=== PATIENT | male | born 1940 | race Caucasian/White ===

== ENCOUNTER 2017-09-07 09:49 | Inpatient (IN) | payer MEDICARE, BC ==
[2017-09-07] MEDS ORDERED: NS 0.9% 1000 ML* 1,000 ML IV ONE (10:16)
[2017-09-07 10:37] LABS: ABS Basophils 0 10^3/ul (0-0.2); ABS Eosinophils 0 10^3/ul (0-0.6); ABS Lymphocytes 1.4 10^3/ul (1.0-4.8); ABS Monocytes 0.4 10^3/ul (0-0.8); ABS Neutrophils 2.5 10^3/ul (1.5-7.7); ABS Nucleated RBC 0 10^3/ul; Eosinophil % 1.1 % (0-6); Hematocrit 42 % (42-52); Lymphocyte % 32.3 % (25-47); Mean Corpuscular HGB Conc 35 g/dl (31-36); Mean Corpuscular Hemoglobin 33 pg (27-31); Mean Corpuscular Volume 95 fL (80-94); Mean Platelet Volume 8 um3 (7.4-10.4); Nucleated Red Blood Cells % 0; Platelet Count 176 10^3/ul (150-450); Red Blood Count 4.48 10^6/ul (4.0-5.4); Red Cell Distribution Width 12 % (10.5-15); White Blood Count 4.5 10^3/ul (3.5-10.8)
[2017-09-07 10:47] LABS: INR 0.98 (0.77-1.02)
[2017-09-07 11:10] LABS: EGFR Non-African American 63.2 (>60)
--- NOTE | 2017-09-07 11:16 | RAD ---
indication: Increased lethargy and dementia COMPARISON: CT of the brain October 05, [address] scan of the brain and c-spine was performed without intravenous contrast enhancement. Contiguous axial sections were obtained from the lung apices through the vertex. BRAIN: There are symmetric involutional changes similar in appearance to the previous CT of the brain. There is mild to moderate periventricular and subcortical white matter hypoattenuation most consistent with chronic microvascular disease. Involving the midline portion of the left precentral gyrus (image 24) as well as gyri of the posterior right parietal lobe, there are areas of encephalomalacia that were not seen on the previous CT of the brain. Elsewhere the jackson-white matter differentiation is adequately maintained. There is no mass, mass effect or midline shift. There is coarse calcification of the petrous carotid arteries and bilateral vertebral arteries. There is no intracranial hemorrhage. No significant bony abnormality is present. The mastoid air cells are appropriately aerated. The visualized paranasal sinuses are clear. C-SPINE: On the sagittal view images there is reversal of the normal cervical lordosis. The vertebral bodies and facet joints are appropriately aligned. The atlantodental interval is not widened. There is no acute fracture or dislocation of the cervical spine. Degenerative changes include multilevel loss of intervertebral disc height and marginal osteophyte formation. There is coarse atherosclerotic calcification of the bilateral carotid bulbs, worse on the right than the left. There is no hyperdense material in the cervical canal to indicate hemorrhage. The visualized musculature and soft tissues are normal. There is no gross lymphadenopathy visualized. The visualized portion of the lung apices are clear. IMPRESSION: 1. Chronic findings similar to the October 05, 2014 CT of the brain include involutional changes and evidence of microvascular disease. There are new areas of chronic appearing encephalomalacia involving the right frontal and left parietal lobes that were not seen on the previous CT of the brain. If the patient is exhibiting acute focal neurologic deficits, MRI of the brain will provide superior characterization of acute infarction. 2. Nonspecific reversal of the normal cervical lordosis and multilevel degenerative changes of the cervical spine as described above. No acute fracture or dislocation is identified.
--- NOTE | 2017-09-07 11:16 | RAD ---
INDICATION: Altered mental status COMPARISON: Chest x-ray August 28, 2009 TECHNIQUE: Single AP portable view of the chest was obtained. FINDINGS: Image quality is compromised due to the relative inferiority of a portable chest x-ray. The heart and mediastinum exhibit normal size and contour. The lungs are grossly clear. There is no evidence of a large pleural effusion. Visualized bones are normal for the patient's age. IMPRESSION: No radiographic evidence for acute cardiopulmonary abnormality on this portable chest x-ray.
--- NOTE | 2017-09-07 13:16 | ED ---
Jaciel Mccray Elizabeth, scribed for Giovani Thompson MD on 09/07/17 at 1118 . Altered Mental Status - HPI Summary HPI Summary: The patient is a 77 year old male presenting to the emergency department with altered mental status. The patient denies any difficulty moving or pain. Per triage note, patient has been increasingly lethargic at home and has a history of dementia. The patient lives at home with his 80 year old . The patients says his dementia has been worsening and recently he has become less active and has been falling often. This morning he fell and his hurt herself trying to help him get up. His does not think she can take care of him anymore. - History Of Current Complaint Chief Complaint: EDAltMentalStatus Stated Complaint: GENERAL ILLNESS Time Seen by Provider: 09/07/17 10:11 Hx Obtained From: Patient Hx From Patient Unobtainable Due To: Altered Mental Status Onset/Duration: Unknown Character: Lethargy Aggravating Factor(s): Unknown Alleviating Factor(s): Unknown - Allergies/Home Medications Allergies/Adverse Reactions: Allergies Allergy/AdvReac Type Severity Reaction Status Date / Time No Known Allergies Allergy Verified 10/05/14 17:29 Home Medications: Home Medications Aspirin EC Low Dose* [Ecotrin EC Low Dose 81 MG*] 81 mg PO DAILY 09/07/17 [ History Confirmed 09/07/17] Donepezil TAB* [Aricept 5 MG TAB*] 10 mg PO BEDTIME 09/07/17 [History Confirmed 09/07/17] FLUoxetine CAP* [PROzac CAP*] 40 mg PO DAILY PRN 09/07/17 [History Confirmed ] Irbesartan/Hctz 300-12.5 1 tab PO DAILY 09/07/17 [History Confirmed 09/07/17] Memantine TAB* [Namenda TAB*] 10 mg PO BID 09/07/17 [History Confirmed 09/07/17] Multivitamins/Minerals TAB* [Theragran/minerals TAB*] 1 tab PO DAILY 09/07/17 [ History Confirmed 09/07/17] Venlafaxine EXT RELEASE CAP* [Effexor Xr CAP*] 75 mg PO DAILY 09/07/17 [History Confirmed 09/07/17] traZODone TAB* [Desyrel TAB*] 50 - 150 mg PO BEDTIME PRN 09/07/17 [History Confirmed 09/07/17] PMH/Surg Hx/FS Hx/Imm Hx Endocrine/Hematology History: Reports: Hx Diabetes Denies: Hx Thyroid Disease Cardiovascular History: Reports: Hx Hypertension Respiratory History: Denies: Hx Asthma, Hx Chronic Obstructive Pulmonary Disease (COPD) GI History: Denies: Hx Ulcer Neurological History: Reports: Hx Dementia - Surgical History Surgery Procedure, Year, and Place: RIGHT shoulder rotator cuff repair more than 10 years ago Infectious Disease History: No Infectious Disease History: Denies: Hx Hepatitis, Hx Human Immunodeficiency Virus (HIV), Traveled Outside the [place] in Last 30 Days - Social History Alcohol Use: None Substance Use Type: Reports: None Smoking Status (MU): Former Smoker Review of Systems Negative: Epistaxis Negative: Decreased ROM All Other Systems Reviewed And Are Negative: Yes Physical Exam - Summary Physical Exam Summary: General: well-appearing, no pain distress Skin: warm, color reflects adequate perfusion, dry Head: normal Eyes: EOMI, DYLLAN ENT: dry mucus membranes Neck: supple, nontender Respiratory: CTA, breath sounds present Cardiovascular: RRR Abdomen: soft, nontender Bowel: present Musculoskeletal: normal, strength/ROM intact, moves all limbs Neurological: confused, sensory/motor intact, not oriented to location Psychological: affect/mood appropriate, confused Triage Information Reviewed: Yes Vital Signs On Initial Exam: Initial Vitals Temp Pulse Resp BP Pulse Ox 97.0 F 53 15 130/58 97 09/07/17 09:50 09/07/17 09:50 09/07/17 09:50 09/07/17 09:50 09/07/17 09:50 Vital Signs Reviewed: Yes Diagnostics - Vital Signs Vital Signs Temp Pulse Resp BP Pulse Ox 09/07/17 10:31 99 09/07/17 10:30 55 112/69 98 09/07/17 10:06 69 12 93 09/07/17 10:05 131/62 09/07/17 09:50 97.0 F 53 15 130/58 97 - Laboratory Lab Results: Lab Results 09/07/17 09/07/17 09/07/17 Range/Units 10:27 10:27 10:27 WBC 4.5 (3.5-10.8) 10^3/ul RBC 4.48 (4.0-5.4) 10^6/ul Hgb 15.0 (14.0-18.0) g/dl Hct 42 (42-52) % MCV 95 H (80-94) fL MCH 33 H (27-31) pg MCHC 35 (31-36) g/dl RDW 12 (10.5-15) % Plt Count 176 (150-450) 10^3/ul MPV 8 (7.4-10.4) um3 Neut % (Auto) 56.0 (38-83) % Lymph % (Auto) 32.3 (25-47) % [place] % (Auto) 9.9 H (0-7) % Eos % (Auto) 1.1 (0-6) % Baso % (Auto) 0.7 (0-2) % Absolute Neuts (auto) 2.5 (1.5-7.7) 10^3/ul Absolute Lymphs (auto) 1.4 (1.0-4.8) 10^3/ul Absolute Monos (auto) 0.4 (0-0.8) 10^3/ul Absolute Eos (auto) 0 (0-0.6) 10^3/ul Absolute Basos (auto) 0 (0-0.2) 10^3/ul Absolute Nucleated RBC 0 10^3/ul Nucleated RBC % 0 INR (Anticoag Therapy) (0.77-1.02) APTT (26.0-36.3) seconds Sodium 130 L (133-145) mmol/L Potassium 4.0 (3.5-5.0) mmol/L Chloride 95 L (101-111) mmol/L Carbon Dioxide 28 (22-32) mmol/L Anion Gap 7 (2-11) mmol/L BUN 18 (6-24) mg/dL Creatinine 1.12 (0.67-1.17) mg/dL Est GFR ( Amer) 81.3 (>60) Est GFR (Non-Af Amer) 63.2 (>60) BUN/Creatinine Ratio 16.1 (8-20) Glucose 263 H (70-100) mg/dL Lactic Acid (0.5-2.0) mmol/L Calcium 9.7 (8.6-10.3) mg/dL Magnesium 2.1 (1.9-2.7) mg/dL Total Bilirubin 1.60 H (0.2-1.0) mg/dL AST 15 (13-39) U/L ALT 13 (7-52) U/L Alkaline Phosphatase 84 (34-104) U/L Ammonia 28 (16-53) mol/L Total Creatine Kinase 126 (10-223) U/L CK-MB (CK-2) 5.4 (0.6-6.3) ng/mL Troponin I 0.01 (<0.04) ng/mL C-Reactive Protein < 1.00 (< 5.00) mg/L B-Natriuretic Peptide 20 ( - 100) pg/mL Total Protein 7.3 (6.4-8.9) g/dL Albumin 4.1 (3.2-5.2) g/dL Globulin 3.2 (2-4) g/dL Albumin/Globulin Ratio 1.3 (1-3) Lipase 23 (11.0-82.0) U/L TSH 1.05 (0.34-5.60) mcIU/mL Acetaminophen < 15 mcg/mL Serum Alcohol < 10 (<10) mg/dL 09/07/17 09/07/17 Range/Units 10:27 10:27 WBC (3.5-10.8) 10^3/ul RBC (4.0-5.4) 10^6/ul Hgb (14.0-18.0) g/dl Hct (42-52) % MCV (80-94) fL MCH (27-31) pg MCHC (31-36) g/dl RDW (10.5-15) % Plt Count (150-450) 10^3/ul MPV (7.4-10.4) um3 Neut % (Auto) (38-83) % Lymph % (Auto) (25-47) % [place] % (Auto) (0-7) % Eos % (Auto) (0-6) % Baso % (Auto) (0-2) % Absolute Neuts (auto) (1.5-7.7) 10^3/ul Absolute Lymphs (auto) (1.0-4.8) 10^3/ul Absolute Monos (auto) (0-0.8) 10^3/ul Absolute Eos (auto) (0-0.6) 10^3/ul Absolute Basos (auto) (0-0.2) 10^3/ul Absolute Nucleated RBC 10^3/ul Nucleated RBC % INR (Anticoag Therapy) 0.98 (0.77-1.02) APTT 27.3 (26.0-36.3) seconds Sodium (133-145) mmol/L Potassium (3.5-5.0) mmol/L Chloride (101-111) mmol/L Carbon Dioxide (22-32) mmol/L Anion Gap (2-11) mmol/L BUN (6-24) mg/dL Creatinine (0.67-1.17) mg/dL Est GFR ( Amer) (>60) Est GFR (Non-Af Amer) (>60) BUN/Creatinine Ratio (8-20) Glucose (70-100) mg/dL Lactic Acid 1.7 (0.5-2.0) mmol/L Calcium (8.6-10.3) mg/dL Magnesium (1.9-2.7) mg/dL Total Bilirubin (0.2-1.0) mg/dL AST (13-39) U/L ALT (7-52) U/L Alkaline Phosphatase (34-104) U/L Ammonia (16-53) mol/L Total Creatine Kinase (10-223) U/L CK-MB (CK-2) (0.6-6.3) ng/mL Troponin I (<0.04) ng/mL C-Reactive Protein (< 5.00) mg/L B-Natriuretic Peptide ( - 100) pg/mL Total Protein (6.4-8.9) g/dL Albumin (3.2-5.2) g/dL Globulin (2-4) g/dL Albumin/Globulin Ratio (1-3) Lipase (11.0-82.0) U/L TSH (0.34-5.60) mcIU/mL Acetaminophen mcg/mL Serum Alcohol (<10) mg/dL Result Diagrams: 09/07/17 10:27 09/07/17 10:27 Lab Statement: Any lab studies that have been ordered have been reviewed, and results considered in the medical decision making process. - Radiology CXR Xray Interpretation: No Acute Changes - IMPRESSION: No radiographic evidence for acute cardiopulmonary abnormality on this portable chest x-ray. Dr. Thompson has reviewed this report. Radiology Interpretation Completed By: Radiologist - CT CT Brain & Cervical Spine CT Interpretation: Positive (See Comments) - IMPRESSION: 1. Chronic findings similar to the October 05, 2014 CT of the brain include involutional changes and evidence of microvascular disease. There are new areas of chronic appearing encephalomalacia involving the right frontal and left parietal lobes that were not seen on the previous CT of the brain. If the patient is exhibiting acute focal neurologic deficits, MRI of the brain will provide superior characterization of acute infarction. 2. Nonspecific reversal of the normal cervical lordosis and multilevel degenerative changes of the cervical spine as described above. No acute fracture or dislocation is identified. Dr. Thompson has reviewed this report. CT Interpretation Completed By: Radiologist - EKG 10:30 Cardiac Rate: Bradycardia - 53 bpm EKG Rhythm: Sinus Bradycardia ST Segment: Normal Ectopy: None Altered Mental Statu Course/Dx - Course Course Of Treatment: ADMIT HOSPITALIST - Diagnoses Provider Diagnoses: Weakness, Confusion Discharge - Discharge Plan Condition: Stable Disposition: ADMITTED TO [facility] Referrals: Bryan Duff MD [Primary Care Provider] - The documentation as recorded by the Jaciel newton Elizabeth accurately reflects the service I personally performed and the decisions made by , Giovani Thompson MD.
[2017-09-07] MEDS ORDERED: Acetaminophen TAB* 325 MG PO PRN (14:06)
[2017-09-07] MEDS ORDERED: FLUoxetine CAP* 20 MG PO PRN (14:08)
[2017-09-07] MEDS ORDERED: traZODone TAB* 50 MG TAB PO PRN (14:08)
[2017-09-07 14:46] LABS: Urine Appearance Cloudy; Urine Blood Negative (Negative); Urine Color Yellow; Urine Ketones Negative (Negative); Urine Protein Negative (Negative); Urine Specific Gravity 1.015 (1.010-1.030); Urine Urobilinogen Negative (Negative)
[2017-09-07] MEDS ORDERED: Dextrose 50% Syringe 50 ML* 25 GM/50 ML SYRINGE IV PUSH PRN (15:03)
[2017-09-07] MEDS: Insulin LISPRO* 1 UNITS UNIT SUBCUT SCH (16:55)
[2017-09-07] MEDS: Sulfamethox/Trimethoprim DS 800/160* TAB PO SCH (20:23)
[2017-09-07] MEDS: Memantine TAB* 10 MG PO SCH (20:23)
[2017-09-07] MEDS ORDERED: Donepezil TAB* 5 MG PO SCH (21:00)
[2017-09-07] MEDS: Heparin VIAL(*) 5000 UNITS/ML VIAL (FIVE THOUSAND) SUBCUT SCH (22:01)
--- NOTE | 2017-09-08 01:47 | HP ---
CC: Dr. Duff * HISTORY AND PHYSICAL: DATE OF ADMISSION: 09/07/17 PRIMARY CARE PROVIDER: Bryan Duff MD. CHIEF COMPLAINT: Falls and difficulty being cared for at home. HISTORY OF PRESENT ILLNESS: Mr. Sarah is a 77-year-old male who has a history of dementia for the last 7 years, who recently has been having increased falls at home. The patient's has been having a harder and harder time caring for him. She notes on the evening prior to admission at approximately 10 p.m., the patient had indicated that he needed to go to the bathroom. She was getting out of bed to help him and before she was able to arrive to him, he was incontinent of a very large amount of urine. She states that he is normally incontinent, but not quite to this degree. This past , the patient's was trying to get the patient up off the couch and she felt like she " threw her back out." The patient has been having worsening memory issues and at this point she feels that she can no longer care for him safely at home. PAST MEDICAL HISTORY: 1. Dementia. 2. Depression. 3. Hypertension. 4. Glaucoma. PAST SURGICAL HISTORY: None per the patient's . ALLERGIES: No known drug allergies. MEDICATIONS: 1. Fluoxetine 40 mg p.o. daily p.r.n. anxiety. 2. Namenda 10 mg p.o. b.i.d. 3. Irbesartan/hydrochlorothiazide 300/12.5 mg one tablet p.o. daily. 4. Donepezil 10 mg p.o. q.h.s. 5. Trazodone 50 to 150 mg p.o. q.h.s. p.r.n. insomnia. 6. Effexor XR 75 mg p.o. daily. 7. Aspirin 81 mg p.o. daily. 8. Multivitamin one table p.o. daily. FAMILY HISTORY: The patient's believes both parents passed from coronary artery disease. SOCIAL HISTORY: The patient is a reported nonsmoker. He does not drink alcohol. 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 He is . He has 2 sons of his own. He is to Katherine Sarah. She has 5 children of her own. REVIEW OF SYSTEMS: Unobtainable from the patient. PHYSICAL EXAMINATION GENERAL: The patient is a well-developed, elderly male seen lying in the stretcher sleeping, easily awakens to voice, no acute distress. VITAL SIGNS: Blood pressure 128/66, pulse 52, respirations 16, temp 97.0, O2 sat 100% on room air. HEENT: Pupils are equal and round. Extraocular muscles are intact. Oropharynx is clear. Oral mucosa is moist. There is no submandibular, cervical or supraclavicular adenopathy. Thyroid is not enlarged. No thyroid nodules are noted. PULMONARY: Lungs are clear to auscultation bilaterally. CARDIAC: Normal S1, S2. Regular rate and rhythm. I do not appreciate any murmurs. ABDOMEN: Bowel sounds are present. Abdomen is soft, nondistended. He does complain of mild tenderness in the epigastrium. MUSCULOSKELETAL: There is no cyanosis or clubbing of the digits. There is full active range of motion of all 4 extremities. SKIN: Warm and dry. There are no rashes. NEUROLOGIC: Cranial nerves II through XII appear to be grossly intact. Sensation appears to be intact to light touch. Strength testing is not performed. PSYCHIATRIC: The patient is pleasantly confused. LABORATORY DATA: WBC 4.5, hemoglobin 15.0, hematocrit 42, platelets 176, INR 0.98. Sodium 130, potassium 4.0, chloride 95, CO2 28, BUN 18, creatinine 1.12, glucose 263, lactic acid 1.7, calcium 9.7, magnesium 2.1, bilirubin 1.6, AST is 15, ALT 13, alk phos 84, ammonia 28, CPK 126, CK-MB 5.4, troponin 0.01, CRP less than 1, BNP 20, albumin 4.1, lipase 23, TSH 1.05. Acetaminophen less than 15, serum alcohol less than 10. Urinalysis positive for nitrites, leukocyte esterase, wbc, but absent for bacteria. ASSESSMENT AND PLAN: Mr. Sarah is a 77-year-old male with history of progressive dementia, who has become more and more difficult to care for at home , who was brought to the emergency room for evaluation. 1. Urinary tract infection. It does appear that the patient likely has a urinary tract infection. The patient's indicates that he has had a steady decline over the last several months. While the urinary tract infection could be contributing more acutely, I do not think this is the total reason for the patient's decline. At this point, the patient's believes that she will need him placed for care. The patient will be started on Bactrim double- strength 1 tablet p.o. b.i.d. x7 days. 2. Hyperglycemia. The patient does not carry a history of diabetes. His sugar is elevated at 263 on random check. He does have 3+ glucose noted within his urine. Hemoglobin A1c will be added to the labs from the emergency room. He will be placed on a lispro sliding scale to determine what his sugars are doing on a daily basis. 3. Dementia. We will continue the Aricept and Namenda, though they likely are not providing any benefit at this point. We will discuss with the patient's tomorrow about discontinuing these. 4. Depression. We will continue the patient's home medication regimen. 5. Hypertension. The patient's blood pressure is under good control. He will be maintained on his usual doses of ARB and hydrochlorothiazide. 6. DVT prophylaxis: According to the Adult Thrombosis Prophylaxis Risk Factor Assessment Guide, the patient has a total risk factor score of 4, making him high risk. Heparin 5000 units subcutaneous q.8 hours will be utilized as DVT prophylaxis. 7. Code status is DNR. [id number]/[facility] #: [id number] FAXTON HOSPITALBerna
[2017-09-08] MEDS: Heparin VIAL(*) 5000 UNITS/ML VIAL (FIVE THOUSAND) SUBCUT SCH ×2 (06:02→12:50)
[2017-09-08] MEDS ORDERED: Losartan TAB* 25 MG PO SCH (09:00)
[2017-09-08] MEDS ORDERED: Multivitamins/Minerals TAB PO SCH (09:00)
[2017-09-08] MEDS ORDERED: Hydrochlorothiazide TAB* 25 MG PO SCH (09:00)
[2017-09-08] MEDS ORDERED: Venlafaxine EXT RELEASE CAP* 75 MG PO SCH (09:00)
[2017-09-08] MEDS ORDERED: Aspirin EC TAB* 81 MG TAB.EC PO SCH (09:00)
[2017-09-08] MEDS: Memantine TAB* 10 MG PO SCH (09:14)
[2017-09-08] MEDS: Sulfamethox/Trimethoprim DS 800/160* TAB PO SCH (09:16)
[2017-09-08] MEDS: Insulin LISPRO* 1 UNITS UNIT SUBCUT SCH ×2 (09:24→12:50)
--- NOTE | 2017-09-08 14:40 | PN ---
Subjective Date of Service: 09/08/17 Interval History: PT is feeling well. He denies pain or SOB. He has been offered a bed at [facility], [place]. Objective Active Medications: Acetaminophen (Tylenol Tab*) 650 mg PO Q4H PRN PRN Reason: PAIN Aspirin (Aspirin Ec Low Dose*) 81 mg PO DAILY [facility] Last Admin: 09/08/17 09:13 Dose: 81 mg Dextrose (D50w Syringe 50 Ml*) 12.5 gm IV PUSH .FOR FS < 60 - SS PRN PRN Reason: FS < 60 Donepezil HCl (Aricept Tab*) 10 mg PO BEDTIME [facility] Last Admin: 09/07/17 20:22 Dose: 10 mg Fluoxetine HCl (Prozac Cap*) 40 mg PO DAILY PRN PRN Reason: ANXIETY Heparin Sodium (Porcine) (Heparin Vial(*)) 5,000 units SUBCUT Q8HR [facility] Last Admin: 09/08/17 12:50 Dose: 5,000 units Hydrochlorothiazide (Hydrodiuril Tab*) 12.5 mg PO DAILY [facility] Last Admin: 09/08/17 09:21 Dose: 12.5 mg Insulin Human Lispro (Humalog*) 0 units SUBCUT AC [facility] PRN Reason: Protocol Last Admin: 09/08/17 12:50 Dose: 4 unit Losartan Potassium (Cozaar Tab*) 100 mg PO DAILY [facility] Last Admin: 09/08/17 09:20 Dose: 100 mg Memantine (Namenda Tab*) 10 mg PO BID [facility] Last Admin: 09/08/17 09:14 Dose: 10 mg Multivitamins/Minerals (Theragran/Minerals Tab*) 1 tab PO DAILY [facility] Last Admin: 09/08/17 09:22 Dose: 1 tab Trazodone HCl (Desyrel Tab*) 50 mg PO BEDTIME PRN PRN Reason: SLEEP Last Admin: 09/07/17 20:22 Dose: 50 mg Trimethoprim/Sulfamethoxazole (Bactrim Ds 800/160 Tab*) 1 tab PO BID [facility] Last Admin: 09/08/17 09:16 Dose: 1 tab Venlafaxine HCl (Effexor Xr Cap*) 75 mg PO DAILY [facility] Last Admin: 09/08/17 09:18 Dose: 75 mg Vital Signs - 8 hr 09/08/17 09/08/17 07:46 08:00 Temperature 97.5 F Pulse Rate 58 Respiratory 16 16 Rate Blood Pressure 112/61 (mmHg) O2 Sat by Pulse 95 Oximetry Oxygen Devices in Use Now: None Appearance: Elderly male sitting up in bed, NAD Eyes: No Scleral Icterus Ears/Nose/Mouth/Throat: Mucous Membranes Moist Respiratory: Symmetrical Chest Expansion and Respiratory Effort, Clear to Auscultation Cardiovascular: NL Sounds; No Murmurs; No JVD, RRR, No Edema Abdominal: NL Sounds; No Tenderness; No Distention Extremities: No Clubbing, Cyanosis Skin: No Rash or Ulcers, No Nodules or Sclerosis Neurological: - - pleasantly confused Result Diagrams: 09/07/17 10:27 09/07/17 10:27 Additional Lab and Data: Lab Results 09/07/17 09/07/17 09/07/17 Range/Units 10:27 10:27 10:27 WBC 4.5 (3.5-10.8) 10^3/ul RBC 4.48 (4.0-5.4) 10^6/ul Hgb 15.0 (14.0-18.0) g/dl Hct 42 (42-52) % MCV 95 H (80-94) fL MCH 33 H (27-31) pg MCHC 35 (31-36) g/dl RDW 12 (10.5-15) % Plt Count 176 (150-450) 10^3/ul MPV 8 (7.4-10.4) um3 Neut % (Auto) 56.0 (38-83) % Lymph % (Auto) 32.3 (25-47) % [place] % (Auto) 9.9 H (0-7) % Eos % (Auto) 1.1 (0-6) % Baso % (Auto) 0.7 (0-2) % Absolute Neuts (auto) 2.5 (1.5-7.7) 10^3/ul Absolute Lymphs (auto) 1.4 (1.0-4.8) 10^3/ul Absolute Monos (auto) 0.4 (0-0.8) 10^3/ul Absolute Eos (auto) 0 (0-0.6) 10^3/ul Absolute Basos (auto) 0 (0-0.2) 10^3/ul Absolute Nucleated RBC 0 10^3/ul Nucleated RBC % 0 INR (Anticoag Therapy) (0.77-1.02) APTT (26.0-36.3) seconds Sodium 130 L (133-145) mmol/L Potassium 4.0 (3.5-5.0) mmol/L Chloride 95 L (101-111) mmol/L Carbon Dioxide 28 (22-32) mmol/L Anion Gap 7 (2-11) mmol/L BUN 18 (6-24) mg/dL Creatinine 1.12 (0.67-1.17) mg/dL Est GFR ( Amer) 81.3 (>60) Est GFR (Non-Af Amer) 63.2 (>60) BUN/Creatinine Ratio 16.1 (8-20) Glucose 263 H (70-100) mg/dL Lactic Acid (0.5-2.0) mmol/L Calcium 9.7 (8.6-10.3) mg/dL Magnesium 2.1 (1.9-2.7) mg/dL Total Bilirubin 1.60 H (0.2-1.0) mg/dL AST 15 (13-39) U/L ALT 13 (7-52) U/L Alkaline Phosphatase 84 (34-104) U/L Ammonia 28 (16-53) mol/L Total Creatine Kinase 126 (10-223) U/L CK-MB (CK-2) 5.4 (0.6-6.3) ng/mL Troponin I 0.01 (<0.04) ng/mL C-Reactive Protein < 1.00 (< 5.00) mg/L B-Natriuretic Peptide 20 ( - 100) pg/mL Total Protein 7.3 (6.4-8.9) g/dL Albumin 4.1 (3.2-5.2) g/dL Globulin 3.2 (2-4) g/dL Albumin/Globulin Ratio 1.3 (1-3) Lipase 23 (11.0-82.0) U/L TSH 1.05 (0.34-5.60) mcIU/mL Acetaminophen < 15 mcg/mL Serum Alcohol < 10 (<10) mg/dL 09/07/17 09/07/17 Range/Units 10:27 10:27 WBC (3.5-10.8) 10^3/ul RBC (4.0-5.4) 10^6/ul Hgb (14.0-18.0) g/dl Hct (42-52) % MCV (80-94) fL MCH (27-31) pg MCHC (31-36) g/dl RDW (10.5-15) % Plt Count (150-450) 10^3/ul MPV (7.4-10.4) um3 Neut % (Auto) (38-83) % Lymph % (Auto) (25-47) % [place] % (Auto) (0-7) % Eos % (Auto) (0-6) % Baso % (Auto) (0-2) % Absolute Neuts (auto) (1.5-7.7) 10^3/ul Absolute Lymphs (auto) (1.0-4.8) 10^3/ul Absolute Monos (auto) (0-0.8) 10^3/ul Absolute Eos (auto) (0-0.6) 10^3/ul Absolute Basos (auto) (0-0.2) 10^3/ul Absolute Nucleated RBC 10^3/ul Nucleated RBC % INR (Anticoag Therapy) 0.98 (0.77-1.02) APTT 27.3 (26.0-36.3) seconds Sodium (133-145) mmol/L Potassium (3.5-5.0) mmol/L Chloride (101-111) mmol/L Carbon Dioxide (22-32) mmol/L Anion Gap (2-11) mmol/L BUN (6-24) mg/dL Creatinine (0.67-1.17) mg/dL Est GFR ( Amer) (>60) Est GFR (Non-Af Amer) (>60) BUN/Creatinine Ratio (8-20) Glucose (70-100) mg/dL Lactic Acid 1.7 (0.5-2.0) mmol/L Calcium (8.6-10.3) mg/dL Magnesium (1.9-2.7) mg/dL Total Bilirubin (0.2-1.0) mg/dL AST (13-39) U/L ALT (7-52) U/L Alkaline Phosphatase (34-104) U/L Ammonia (16-53) mol/L Total Creatine Kinase (10-223) U/L CK-MB (CK-2) (0.6-6.3) ng/mL Troponin I (<0.04) ng/mL C-Reactive Protein (< 5.00) mg/L B-Natriuretic Peptide ( - 100) pg/mL Total Protein (6.4-8.9) g/dL Albumin (3.2-5.2) g/dL Globulin (2-4) g/dL Albumin/Globulin Ratio (1-3) Lipase (11.0-82.0) U/L TSH (0.34-5.60) mcIU/mL Acetaminophen mcg/mL Serum Alcohol (<10) mg/dL Assess/Plan/Problems-Billing 77 yo M with advanced dementia admitted under prison care for increased falls. - Patient Problems (1) Dementia Current Visit: Yes Status: Acute Code(s): F03.90 - UNSPECIFIED DEMENTIA WITHOUT BEHAVIORAL DISTURBANCE SNOMED Code(s): 64473170 Comment: Stop aricept and namenda as they likely are not providing any benefit. Continue supportive care. (2) Falls Current Visit: Yes Status: Acute Comment: Pt will be going to [facility] for hopefully a safer environment. (3) Type II diabetes mellitus Current Visit: Yes Status: Acute Comment: Likely diagnosed previously but pt had refused finger sticks so treatment was stopped. Start metformin 500 mg daily and not aim for perfect control. (4) UTI (urinary tract infection) Current Visit: Yes Status: Acute Comment: Pt likely has UTI. Continue bactrim x 6 more days. (5) DNR (do not resuscitate) Current Visit: Yes Status: Acute
--- NOTE | 2017-09-08 15:04 | DS ---
CC: Dr. Duff; [facility] * DATE OF ADMISSION: 09/07/2017. DATE OF DISCHARGE: 09/08/2017. PRIMARY CARE PHYSICIAN: Dr. Duff. PRINCIPAL DIAGNOSES: 1. Advanced dementia. 2. Frequent falls. 3. Urinary tract infection - culture pending. 4. Type 2 diabetes. SECONDARY DIAGNOSES: 1. Depression. 2. Hypertension. DISCHARGE MEDICATIONS: 1. Prozac 40 mg p.o. daily prn anxiety. 2. Irbesartan/Hydrochlorothiazide 300/12.5 one tab p.o. daily. 3. Trazodone 50 mg p.o. at bedtime prn insomnia. 4. Venlafaxine XR 75 mg p.o. daily. 5. Aspirin 81 mg p.o. daily. 6. Multivitamin one tab p.o. daily. 7. Metformin 500 mg p.o. daily. 8. Bactrim DS one tab p.o. b.i.d. HOSPITAL COURSE: Mr. Sarah is a 77-year-old male who has been cared for at home by his for his history of advanced dementia. She notes that he has had increasing falls recently. She is no longer able to pick him up off the floor and has been having to call family members to help her. At this point, she feels that she is unable to continue to care for him at home. The patient was brought to the emergency room for evaluation. He was found to have a urinary tract infection; however, he was not septic secondary to this. The urine culture is pending at this time. He was started on Bactrim. The culture will need to be followed up to ensure that he is on appropriate therapy for the bacteria that grows. Additionally, the patient was found to be a type 2 diabetic. Initially the patient's denied this history; however, in speaking with the patient's daughter, she indicates that he likely has been diagnosed as a type 2 diabetes, however he had refused fingersticks in the past. At this point, we will start Metformin 500 mg daily to try to achieve somewhat better control with the understanding that he does not need tight blood sugar control at this point. The patient has been given a bed offer at [facility] and will be discharged there today. FOLLOW-UP CONCERNS: The patient is being discharged to [facility] today, 09/08/2017. ACTIVITY LEVEL: As tolerated. DIET: Diabetic. CONDITION ON DISCHARGE: Stable. Thirty-five minutes were spent discharging this patient. [id number]/[facility] #: [id number] [facility] CENTERBerna
[2017-09-08 16:18] VITALS: BP 102/56
== END 2017-09-08 16:15 | DRG 884 ==
LOC: ED 09:49 → MED 14:06
PROVIDERS: ADMIT Hospitalist; ATTEND Hospitalist
DX: F03.90 Unspecified dementia, unspecified severity, without behavioral disturbance, psychotic disturbance, mood disturbance, and anxiety (principal); N39.0 Urinary tract infection, site not specified; E11.9 Type 2 diabetes mellitus without complications; F32.9 Major depressive disorder, single episode, unspecified; I10 Essential (primary) hypertension; H40.9 Unspecified glaucoma; Z74.2 Need for assistance at home and no other household member able to render care; Z66 Do not resuscitate; Z79.82 Long term (current) use of aspirin; Z91.81 History of falling; Z79.899 Other long term (current) drug therapy; Z82.49 Family history of ischemic heart disease and other diseases of the circulatory system; R41.82 Altered mental status, unspecified; Z87.891 Personal history of nicotine dependence; R53.1 Weakness; R41.0 Disorientation, unspecified; R53.83 Other fatigue; R00.1 Bradycardia, unspecified
CPT/HCPCS: 36415; 70450; 71045; 72125; 80053; 80307; 80320; 80329; 81003; 81015; 82140; 82550; 82553; 83036; 83605; 83690; 83735; 83880; 84443; 84484; 85025; 85610; 85730; 86140; 87086; 93005; 99284; A9270-GY; G0480; J1644

== ENCOUNTER 2017-09-23 16:12 | Inpatient (IN) | payer MEDICARE, BC ==
[2017-09-23] MEDS ORDERED: Lidocaine 2% JELLY* 6 ML JELLY TOPICAL ONE (16:26)
[2017-09-23] MEDS ORDERED: NS 0.9% 1000 ML* 1,000 ML IV ONE ×3 (16:44→18:25)
[2017-09-23] MEDS ORDERED: LORazepam INJ* 2 MG/ML 1 ML VIAL IV PUSH ONE (16:55)
[2017-09-23 17:12] LABS: Urine Appearance Cloudy; Urine Blood 3+ (Negative); Urine Color Yellow; Urine Ketones Negative (Negative); Urine Protein 1+(30 mg/dL) (Negative); Urine Specific Gravity 1.018 (1.010-1.030); Urine Urobilinogen Negative (Negative)
[2017-09-23 17:22] LABS: Hematocrit 46 % (42-52); Hemoglobin 15.6 g/dl (14.0-18.0); Mean Corpuscular HGB Conc 34 g/dl (31-36); Mean Corpuscular Hemoglobin 33 pg (27-31); Mean Corpuscular Volume 97 fL (80-94); Platelet Count 274 10^3/ul (150-450); Red Blood Count 4.77 10^6/ul (4.0-5.4); Red Cell Distribution Width 12 % (10.5-15); White Blood Count 20.7 10^3/ul (3.5-10.8)
[2017-09-23 17:28] LABS: EGFR Non-African American 17.4 (>60)
[2017-09-23] MEDS ORDERED: cefTRIAXone(*) 1 GM in NS 0.9% 50 ML* 50 ML IVPB ONE (17:39)
[2017-09-23] MEDS ORDERED: cefTRIAXone VIAL(*) 1,000 MG VIAL ONE (17:48)
[2017-09-23] MEDS ORDERED: cefTRIAXone 1000 MG SYRINGE IVPB ONCE (in NaCl) IVPB ONE ×2 (18:00)
[2017-09-23 18:11] LABS: ABS Basophils 0.1 10^3/ul (0-0.2); ABS Eosinophils 0 10^3/ul (0-0.6); ABS Lymphocytes 1.8 10^3/ul (1.0-4.8); ABS Monocytes 1.7 10^3/ul (0-0.8); ABS Neutrophils 17.1 10^3/ul (1.5-7.7); ABS Nucleated RBC 0 10^3/ul; Eosinophil % 0 % (0-6); Lymphocyte % 8.6 % (25-47); Nucleated Red Blood Cells % 0
--- NOTE | 2017-09-23 18:37 | RAD ---
INDICATION: Change of mental status COMPARISON: CT brain September 07, 2017 TECHNIQUE: Noncontrast axial source images were acquired from the skull base to the vertex. Examination is limited due to motion artifact. Image sequences were repeated. FINDINGS: Ventricles/sulci: There is advanced cortical atrophy.. Brain parenchyma: There is extensive periventricular and subcortical white matter change compatible with chronic ischemia. Intracranial hemorrhage:None. Extra-axial spaces: There are no abnormal extra axial fluid collections or evidence of extra-axial mass. Calvarium: There is no calvarial fracture or other calvarial abnormality. Scalp: There is no evidence of scalp or extracalvarial soft tissue abnormality. Paranasal sinuses/mastoid: The paranasal sinuses and mastoid air cells are clear. Other: None. IMPRESSION: LIMITED EXAMINATION DUE TO THE PATIENT'S INABILITY TO COOPERATE. ADVANCED CORTICAL ATROPHY WITH CHRONIC MICROVASCULAR ISCHEMIC CHANGES. NO ACUTE FINDINGS.
[2017-09-23] MEDS ORDERED: Acetaminophen TAB* 325 MG PO PRN (18:42)
[2017-09-23] MEDS ORDERED: LORazepam INJ* 2 MG/ML 1 ML VIAL IV PUSH PRN (18:42)
[2017-09-23] MEDS ORDERED: Ondansetron INJ* 2 MG/ML VIAL IV PRN (18:42)
[2017-09-23] MEDS ORDERED: Insulin LISPRO* 1 UNITS UNIT SUBCUT ONE (18:50)
[2017-09-23] MEDS ORDERED: Dextrose 50% Syringe 50 ML* 25 GM/50 ML SYRINGE IV PUSH PRN (18:50)
--- NOTE | 2017-09-23 18:51 | RAD ---
INDICATION: Altered mental status COMPARISON: September 07, 2017 TECHNIQUE: An AP portable view obtained at 1836 hours is submitted. FINDINGS: Bones/Soft Tissues: There are no acute bony findings. Cardiomediastinal: The cardiomediastinal silhouette is unchanged. There is uncoiling of the aorta. Lungs: There are no infiltrates. Pleura: There are no pleural effusions. Other: None IMPRESSION: NO ACTIVE DISEASE.
[2017-09-23] MEDS ORDERED: Morphine INJ* 2 MG/ML 1 ML CARPUJECT IV PRN (18:53)
[2017-09-23] MEDS: Haloperidol INJ IV/IM* 5 MG/ML AMP IV SLOW PU PRN (21:16)
[2017-09-23] MEDS: Insulin LISPRO* 1 UNITS UNIT SUBCUT SCH (22:22)
[2017-09-23] MEDS: Heparin VIAL(*) 5000 UNITS/ML VIAL (FIVE THOUSAND) SUBCUT SCH (22:22)
[2017-09-23] MEDS: NS 0.9% 1000 ML* 1,000 ML IV SCH (22:24)
[2017-09-24] MEDS: LORazepam INJ* 2 MG/ML 1 ML VIAL IV PUSH PRN ×2 (00:07→22:43)
--- NOTE | 2017-09-24 00:38 | HP ---
CC: Dr. Duff * ADMISSION HISTORY AND PHYSICAL: DATE OF ADMISSION: 09/23/17 PRIMARY CARE PROVIDER: Dr. Duff and [facility]. MY ATTENDING WHILE IN THE HOSPITAL: Guero Zaman MD * (DICTATED BY PERCY EDWARDS) CHIEF COMPLAINT: Altered mental status. HISTORY OF PRESENT ILLNESS: Mr. Sarah is a 77-year-old male with past medical history significant for advanced dementia, depression, hypertension, hyperlipidemia, and diabetes who presents with altered mental status, which has been getting progressively worse since he was admitted to [facility] after being discharged from this facility on 09/08/17. Per notes from the facility, the patient has had behavioral issues since then with frequent falls out of bed on to a mat which was placed next to his bed. The patient recently had a fall and hit his head, but had no injury and no neurological deficits on neuro examination. The patient's daughter states that he was at his worst ever today and that when she went to visit him, he was spitting at her , spitting on his food, and entirely not oriented or communicative. According to the most recent note from [facility], the patient this evening was found naked in bed, yelling "help me." The patient had fallen 3 times a day and had been getting worse. The patient had not eaten today. It is not mentioned how much the patient was eating. The patient recently acted this way with worsening falls and altered mental status when he had a urinary tract infection , which prompted his admission here on 09/07/17. The patient is unable to provide any substantive use history himself and just mumbles and attempts to get off bed when examined. The patient, in the emergency department, had a temperature of 97.1 and pulse rate of 106, oxygen saturation 97% and blood pressure of 121/72. The patient's laboratory data showed a white blood cell count of 20.7, creatinine of 3.42, BUN of 76, anion gap of 18, lactic acid of 5.0, glucose of 349 and troponin I of 0.07. Due to the patient's severely altered mental status, elevated troponin, lactic acid, and white blood cell count, we were asked to evaluate for admission. PAST MEDICAL HISTORY: 1. Dementia. 2. Alzheimer's, severe. 3. Depression. 4. Hypertension. 5. Glaucoma. 6. Hyperlipidemia. 7. Diabetes mellitus type 2. PAST SURGICAL HISTORY: None. MEDICATIONS ON ADMISSION: 1. Fluoxetine 40 mg p.o. daily. 2. Irbesartan hydrochlorothiazide 150/12.5 one tab p.o. daily. 3. Venlafaxine 75 mg p.o. daily. 4. Aspirin 81 mg p.o. daily. 5. Multivitamin 1 tab p.o. daily. 6. Metformin 500 mg p.o. daily. 7. Trazodone 50 mg p.o. at bedtime as needed. 8. Lorazepam 1 mg p.o. once at the [facility] today. ALLERGIES: No known drug allergies. FAMILY HISTORY: Unobtainable from the patient. Family history from previous records shows both the patient's parents from coronary artery disease. No other known family history. SOCIAL HISTORY: The patient has never smoked, never drank, never used illicit drugs. 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 The patient is . His surrogate decision maker is his , Katherine Sarah. The patient has 2 children and 5 step children. All of this was obtained from a combination of discussing with the patient's daughter and previous records. The patient's daughter will tomorrow be filling out a power of mergers and acquisitions attorney form for her father. REVIEW OF SYSTEMS: Unobtainable due to patient's altered mental status. PHYSICAL EXAMINATION GENERAL: The patient is a 77-year-old male, who appears stated age and sitting in the bed, in mild distress, attempting to get up and mumbling. VITAL SIGNS: At the time of evaluation, temperature 97.1, pulse rate 106, respiratory rate 20, oxygen saturation 97% on room air, blood pressure 121/72. HEENT: Head: Normocephalic, atraumatic. No crepitus, bruising. Sclerae anicteric. No conjunctival injection. Nasal and oral mucosa is dry. The patient's tongue is covered with a thick film of secretions. NECK: Supple. No lymphadenopathy. No carotid bruits auscultated. No JVD. RESPIRATORY: Clear to auscultation bilaterally. No wheezes, rales, or rhonchi. Good air exchange bilaterally. Limited exam due to patient's inability to follow directions to take a deep breath. Respiratory rate of 18. CARDIAC: Tachycardic. Regular rhythm. No clicks, murmurs, gallops, or rubs. Pulses are 2+ in bilateral dorsalis pedis, posterior tibialis, and radial areas. No bilateral lower extremity edema noted. ABDOMEN: Soft, nontender, nondistended. Bowel sounds present and normoactive in all 4 quadrants. No hepatosplenomegaly. No abdominal bruits auscultated. GENITOURINARY: No suprapubic or CVA tenderness. NEURO: The patient is alert and not oriented. No focal deficits. PSYCHIATRIC: Agitated, disoriented. SKIN: The patient has numerous bruises. The patient has poor skin turgor. No other rash consistent with cellulitis noted. DIAGNOSTIC STUDIES/LAB DATA: White blood cell count 20.7, red blood cell count 4.77, hemoglobin 15.6, MCV 97, MCH 33. Sodium 145, potassium 3.8, chloride 104, carbon dioxide 23, anion gap 18, BUN 76, creatinine 3.42, glucose 349, lactic acid 5.0, calcium 10.8, magnesium 2.9, total bilirubin 2.4, AST 48, ALT 38, alkaline phosphatase 132, ammonia 39. Creatine kinase 964. Troponin I of 0.07. Total protein 9.0, albumin 4.8, globulin 4.2. TSH 1.53. Urine yellow cloudy, pH of 5.0, specific gravity 1.018, protein +1, negative ketones, 3+ blood, negative nitrite, negative bilirubin, negative urobilinogen, leukocyte esterase trace, white blood cell count 1, red blood cells trace. Urine squamous epithelial cells present, amorphous crystals present, urine bacteria absent, hyaline casts present, urine glucose 3+. Toxicology detects no opioids, Tylenol, barbiturates or alcohol and otherwise negative studies. Brain CT read as minimal examination due to the patient's inability to cooperate , advanced cortical atrophy with chronic microvascular ischemic changes, no bleed. Chest x-ray read as no acute disease, reviewed by this author and with no infiltrates. EKG pending at the time of this dictation. ASSESSMENT AND PLAN: IMPRESSION: 1. The patient is a 77-year-old male with past medical history significant for advanced dementia, depression, hypertension, who was recently admitted to this institution with urinary tract infection, which led to increased confusion and falls, was then discharged to [facility] where he has become progressively more confused and aggressive. Based on the patient's lab work and presentation, he appears to be acutely dehydrated probably due to uncontrolled hyperglycemia and poor oral intake due to altered mental status. The patient will be admitted to the hospital for aggressive fluid resuscitation, cardiac monitoring and supportive care. 2. Altered mental status. The patient's altered mental status is likely multifactorial. The patient has known advanced dementia. The patient has been deteriorating significantly since he arrived at [facility] likely due to delirium related to having moved out of his house of many years as well as metabolic encephalopathy. The patient's ammonia is negative. The patient has negative urine drug and serum screen as below. Continue supportive care. The patient will have Haldol and Ativan available in case he becomes a danger to himself. CT of the head is negative for bleed, but shows chronic atrophy and microvascular changes consistent with patient's known history of advanced dementia. 3. Dehydration. The patient appears to be severely dehydrated causing acute kidney injury. This likely in combination with patient's metformin caused his severe lactic acidosis. The patient's vital signs aside from mild tachycardia are stable and show no other signs. The patient has no other signs of infection. The patient will be aggressively rehydrated and we will follow the patient's lactic acid. The patient will be started on ceftriaxone due to weakly positive urinalysis and laboratory data could be seen in the setting of infection. We will add on a CRP to assess for possible infection. The patient has a SOFA score of 9 and meets SIRS criteria with tachycardia, elevated white blood cell count. The patient has lactic acidosis, but no hypotension. The patient has a suspected source of infection in his urine, however, this is probably not the cause of his lactic acidosis. 4. Diabetes mellitus type 2. The patient's most recent hemoglobin A1c was 8.6. The patient was started on metformin. The patient's glucose at this time was 349. It is likely that the patient's metformin is not adequately controlling. His blood sugar based on his hemoglobin A1c level is likely also contributing to the patient's dehydration. We will give the patient 5 units of insulin now as he is relatively insulin naive and begin him on sliding scale insulin with fingersticks a.c. and h.s. 5. Acute kidney injury. The patient's creatinine is 3.42, increased from 1.16 at last check on 03/26/18 and 1.12 before that while he was admitted to the hospital. This is likely due to apparent dehydration. The patient also has an elevated creatine kinase, probably from either dehydration or multiple falls with unknown cumulative amount of downtime. This is possibly also contributing to his acute kidney injury. We will add on FENa to help distinguish between intrinsic and prerenal acute kidney injury. We will aggressively hydrate and watch for signs of fluid overload if no response to dehydration. We will monitor closely. This is likely also the cause of patient's elevated magnesium and anion gap. 6. Elevated troponin. The patient's troponin is elevated at 0.07. This is likely due to patient's dehydration and demand ischemia as well as acute kidney injury. We will check x3. Discussed with the family, they do not want invasive measures. If it was indicated for the patient's heart, EKG is pending. The patient is unable to convey chest pain, but this is not his chief complaint and he has other explanations for elevated troponin. We will monitor at this time. Continue the patient's aspirin. 7. Hypertension. The patient is normotensive. Right now, we will hold the patient's blood pressure medications in the setting of severe dehydration. We will resume as indicated. The patient's hydrochlorothiazide and losartan are likely contributing to his dehydration and acute kidney injury as well. 8. Depression. Continue patient's venlafaxine. Discontinue fluoxetine, which will taper due to its half life. Continue venlafaxine to avoid abrupt discontinuation syndrome. 9. DVT prophylaxis. The patient is a high risk due to his age and will be started on heparin subcu. 10. Code status. The patient is DNR. This has been reconfirmed with his step- daughter, Suyapa. He has a MOLST form with him from [employer]. His healthcare proxy is his , Katherine Sarah. The patient's step-daughter is signing power of mergers and acquisitions attorney tomorrow, which is not yet in effect. 11. Disposition. The patient is admitted inpatient to telemetry. TIME SPENT: Approximately 1 hour was spent on this admission, 30 of which was spent in [id number] with the patient and discussing with his family the treatment plan and history. This plan has been discussed with my attending, Dr. Venancio Zaman, he is in agreement. PERCY EDWARDS [id number]/[facility] #: [id number] [place]
[2017-09-24] MEDS: NS 0.9% 1000 ML* 1,000 ML IV SCH (04:22)
[2017-09-24] MEDS: Haloperidol INJ IV/IM* 5 MG/ML AMP IV SLOW PU PRN (04:27)
[2017-09-24 05:44] LABS: ABS Basophils 0 10^3/ul (0-0.2); ABS Eosinophils 0 10^3/ul (0-0.6); ABS Neutrophils 11.1 10^3/ul (1.5-7.7); ABS Nucleated RBC 0 10^3/ul; Eosinophil % 0.1 % (0-6); Hematocrit 41 % (42-52); Hemoglobin 13.8 g/dl (14.0-18.0); Lymphocyte % 7.9 % (25-47); Mean Corpuscular HGB Conc 34 g/dl (31-36); Mean Corpuscular Hemoglobin 33 pg (27-31); Mean Corpuscular Volume 98 fL (80-94); Mean Platelet Volume 7.9 um3 (7.4-10.4); Nucleated Red Blood Cells % 0; Platelet Count 176 10^3/ul (150-450); Red Blood Count 4.16 10^6/ul (4.0-5.4); Red Cell Distribution Width 12 % (10.5-15); White Blood Count 13.2 10^3/ul (3.5-10.8)
[2017-09-24 06:01] LABS: EGFR Non-African American 28.7 (>60)
[2017-09-24] MEDS: Heparin VIAL(*) 5000 UNITS/ML VIAL (FIVE THOUSAND) SUBCUT SCH ×3 (06:25→20:41)
[2017-09-24] MEDS: NS 0.45% 1000 ML BAG* 1,000 ML IV SCH ×2 (07:56→20:08)
[2017-09-24] MEDS: Insulin LISPRO* 1 UNITS UNIT SUBCUT SCH ×4 (09:42→20:42)
[2017-09-24] MEDS: Venlafaxine EXT RELEASE CAP* 75 MG PO SCH (09:43)
[2017-09-24] MEDS: Aspirin EC TAB* 81 MG TAB.EC PO SCH (09:43)
[2017-09-24] MEDS ORDERED: Metoprolol Tartrate IV* 1 MG/ML 5 ML VIAL ONE (10:12)
[2017-09-24] MEDS: Metoprolol Tartrate IV* 1 MG/ML 5 ML VIAL IV PRN ×2 (10:19→10:27)
[2017-09-24] MEDS ORDERED: Diltiazem IV VIAL* 125 MG in NS 0.9% 100 ML* 100 ML IV SCH ×2 (11:00→12:00)
[2017-09-24] MEDS ORDERED: Diltiazem DRIP* 100 MG/100 ML ADDV.BAG IVPB SCH ×2 (11:00)
[2017-09-24] MEDS ORDERED: Insulin LISPRO* 1 UNITS UNIT SUBCUT ONE (12:28)
[2017-09-24] MEDS ORDERED: Amiodarone TAB* 400 MG PO SCH (13:00)
[2017-09-24] MEDS ORDERED: Diltiazem TAB* 30 MG PO SCH (13:00)
[2017-09-24] MEDS: Diltiazem TAB* 60 MG PO SCH ×5 (14:05→22:43)
[2017-09-24] MEDS ORDERED: cefTRIAXone 1000 MG SYRINGE IVPB Q24H (in NaCl) IVPB SCH ×2 (16:00)
[2017-09-24] MEDS ORDERED: cefTRIAXone(*) 1 GM in NS 0.9% 50 ML* 50 ML IVPB SCH (16:00)
--- NOTE | 2017-09-24 16:59 | PN ---
Subjective Date of Service: 09/24/17 Interval History: Patient continued to be agitated overnight. Only moderately responsive to pharmacological behavioral control. Patient had intermittent tachycardia this AM with rates to 180. EKG confirms Afib. Not controlled with metoprolol pushes and then started on diltiazem drip which was moderately effective, then patient spontaneously converted back to NSR. Unable to get ROS. Discussed goals of care with family and they state that they would like to assess mental status after acute illness and then consider for palliative care if continuing agitated behaviors and AMS. Mental state slightly improved from yesterday. Family History: Unchanged from Admission Social History: Unchanged from Admission Past Medical History: Unchanged from Admission Objective Active Medications: Acetaminophen (Tylenol Tab*) 650 mg PO Q6H PRN PRN Reason: FEVER/PAIN Aspirin (Aspirin Ec Tab*) 81 mg PO DAILY [facility] Last Admin: 09/24/17 09:43 Dose: 81 mg Dextrose (D50w Syringe 50 Ml*) 12.5 gm IV PUSH .FOR FS < 60 - SS PRN PRN Reason: FS < 60 Diltiazem HCl (Cardizem Tab*) 60 mg PO Q6HR [facility] Last Admin: 09/24/17 14:52 Dose: 60 mg Haloperidol Lactate (Haldol Inj Iv/Im*) 5 mg IV SLOW PU Q6H PRN PRN Reason: AGITATION Last Admin: 09/24/17 04:27 Dose: 5 mg Heparin Sodium (Porcine) (Heparin Vial(*)) 5,000 units SUBCUT Q8HR [facility] Last Admin: 09/24/17 14:15 Dose: 5,000 units Ceftriaxone Sodium 1,000 mg/ (Sodium Chloride) 10 mls @ 40 mls/hr IVPB Q24H [facility] Last Admin: 09/24/17 16:23 Dose: 40 mls/hr Sodium Chloride (Ns 0.45% 1000 Ml Bag*) 1,000 mls @ 100 mls/hr IV PER RATE [facility] Last Admin: 09/24/17 07:56 Dose: 100 mls/hr Insulin Human Lispro (Humalog*) 0 units SUBCUT ACHS [facility] PRN Reason: Protocol Last Admin: 09/24/17 12:30 Dose: 2 units Lorazepam (Ativan Inj*) 1 mg IV PUSH Q4HR PRN PRN Reason: ANXIETY Last Admin: 09/24/17 00:07 Dose: 1 mg Morphine Sulfate (Morphine Inj (Syringe)*) 2 mg IV Q4H PRN PRN Reason: PAIN - MILD Last Admin: 09/24/17 04:35 Dose: 2 mg Ondansetron HCl (Zofran Inj*) 4 mg IV Q6H PRN PRN Reason: NAUSEA Venlafaxine HCl (Effexor Xr Cap*) 75 mg PO DAILY [facility] Last Admin: 09/24/17 09:43 Dose: 75 mg Vital Signs - 8 hr 09/24/17 09/24/17 09/24/17 09:09 09:19 10:38 Temperature 97.9 F Pulse Rate 97 102 118 Respiratory 18 Rate Blood Pressure 133/74 122/71 (mmHg) O2 Sat by Pulse 94 97 Oximetry 09/24/17 09/24/17 09/24/17 10:50 11:04 11:20 Temperature Pulse Rate Respiratory Rate Blood Pressure 113/86 122/90 115/83 (mmHg) O2 Sat by Pulse Oximetry 09/24/17 09/24/17 09/24/17 11:35 11:49 12:00 Temperature Pulse Rate 64 Respiratory Rate Blood Pressure 101/67 106/75 (mmHg) O2 Sat by Pulse 98 Oximetry 09/24/17 09/24/17 09/24/17 12:05 12:15 12:20 Temperature Pulse Rate 76 99 116 Respiratory Rate Blood Pressure 118/71 111/100 93/78 (mmHg) O2 Sat by Pulse 97 95 96 Oximetry 09/24/17 09/24/17 09/24/17 12:32 12:34 12:49 Temperature Pulse Rate 93 87 Respiratory Rate Blood Pressure 103/60 104/59 (mmHg) O2 Sat by Pulse 98 97 Oximetry 09/24/17 09/24/17 13:37 15:28 Temperature 97.9 F Pulse Rate 109 103 Respiratory 14 Rate Blood Pressure 84/44 (mmHg) O2 Sat by Pulse 92 100 Oximetry Oxygen Devices in Use Now: None Appearance: Patient is a 77yo male who appears stated age and is sitting in the bed in moderate distress, intermittently swearing and violent with staff. Eyes: No Scleral Icterus, PERRLA Ears/Nose/Mouth/Throat: NL Teeth, Lips, Gums, Clear Oropharnyx, Mucous Membranes Moist Neck: NL Appearance and Movements; NL JVP, Trachea Midline Respiratory: Symmetrical Chest Expansion and Respiratory Effort, Clear to Auscultation Cardiovascular: NL Sounds; No Murmurs; No JVD, RRR, No Edema Abdominal: NL Sounds; No Tenderness; No Distention, No Hepatosplenomegaly Lymphatic: No Cervical Adenopathy Extremities: No Edema, No Clubbing, Cyanosis Skin: No Rash or Ulcers, No Nodules or Sclerosis Neurological: - - No focal deficits. Moves all limbs equally. Lethargic and not oriented. Result Diagrams: 09/24/17 05:32 09/24/17 05:32 Microbiology and Other Data: Microbiology 09/24/17 02:20 Nasal Screen MRSA (PCR)(RAQUEL) - Final Nasal Mrsa Not Detected Assess/Plan/Problems-Billing Assessment: - Patient Problems (1) Acute kidney injury Current Visit: Yes Status: Acute Code(s): N17.9 - ACUTE KIDNEY FAILURE, UNSPECIFIED SNOMED Code(s): 31274182 Comment: Intrinsic by FENa. Likely due to dehydration causing ATN. Rhabdomyolysis also probably contributing to a certain degree. Improving with fluids. (2) Dehydration Current Visit: Yes Status: Acute Code(s): E86.0 - DEHYDRATION SNOMED Code( s): 98251278 Comment: Severe by lab work. Due to poor oral intake, reportedly spitting out all food at correction for a week and likely diuresis from hyperglycemia. Continue 1/ 2NS due to hypernatremia. (3) Atrial fibrillation Current Visit: Yes Status: Acute Code(s): I48.91 - UNSPECIFIED ATRIAL FIBRILLATION SNOMED Code(s): 84846660 Comment: Went into rapid Afib at 0800. Spontaneously converted back in afternoon on Cardizem drip. Transition to oral cardizem. No known history of Afib. No rhythm control agent recommended at this time. (4) Lactic acidosis Current Visit: Yes Status: Acute Code(s): E87.2 - ACIDOSIS SNOMED Code(s) : 73971456 Comment: At 5.0 on admission. Decreased to 1.6. Possibly due to DEB in conjunction with metformin. Hold metformin. (5) UTI (urinary tract infection) Current Visit: No Status: Acute Comment: Possible UTI. Culture pending. Continue Ceftriaxone. (6) Dementia Current Visit: No Status: Acute Code(s): F03.90 - UNSPECIFIED DEMENTIA WITHOUT BEHAVIORAL DISTURBANCE SNOMED Code(s): 21736848 Comment: Advanced. Likely with delirium due to transition to [facility]. Discussed palliative care with family and they would like to see what patient's new baseline is after correction of metabolic abnormalities. (7) Type II diabetes mellitus Current Visit: No Status: Acute Comment: Poor control. Hold metformin and continue SSI and FSBG AC. Likely contributing to dehydration. Consider other oral medications or insulin at discharge. (8) Falls Current Visit: No Status: Acute Comment: Frequent falls at [facility]. (9) DVT prophylaxis Current Visit: Yes Status: Acute Code(s): JBQ1694 - SNOMED Code(s): 174965458 Comment: Heparin SubQ. (10) DNR (do not resuscitate) Current Visit: No Status: Acute Status and Disposition: Inpatient. Discharge likely to [facility] at discharge.
[2017-09-25] MEDS: Haloperidol INJ IV/IM* 5 MG/ML AMP IV SLOW PU PRN (01:37)
[2017-09-25] MEDS: Diltiazem TAB* 60 MG PO SCH ×3 (05:08→17:41)
[2017-09-25] MEDS: LORazepam INJ* 2 MG/ML 1 ML VIAL IV PUSH PRN (05:08)
[2017-09-25] MEDS: Heparin VIAL(*) 5000 UNITS/ML VIAL (FIVE THOUSAND) SUBCUT SCH ×3 (05:08→21:34)
[2017-09-25] MEDS: NS 0.45% 1000 ML BAG* 1,000 ML IV SCH ×2 (05:08→15:17)
[2017-09-25 07:01] LABS: ABS Basophils 0 10^3/ul (0-0.2); ABS Eosinophils 0 10^3/ul (0-0.6); ABS Lymphocytes 2.3 10^3/ul (1.0-4.8); ABS Monocytes 0.8 10^3/ul (0-0.8); ABS Neutrophils 6.2 10^3/ul (1.5-7.7); ABS Nucleated RBC 0 10^3/ul; Eosinophil % 0.4 % (0-6); Hematocrit 38 % (42-52); Hemoglobin 13.1 g/dl (14.0-18.0); Lymphocyte % 24.6 % (25-47); Mean Corpuscular HGB Conc 34 g/dl (31-36); Mean Corpuscular Hemoglobin 33 pg (27-31); Mean Corpuscular Volume 97 fL (80-94); Mean Platelet Volume 8.7 um3 (7.4-10.4); Nucleated Red Blood Cells % 0.1; Platelet Count 158 10^3/ul (150-450); Red Blood Count 3.93 10^6/ul (4.0-5.4); Red Cell Distribution Width 12 % (10.5-15); White Blood Count 9.4 10^3/ul (3.5-10.8)
[2017-09-25 07:26] LABS: EGFR Non-African American 43.8 (>60)
--- NOTE | 2017-09-25 09:28 | PN ---
Subjective Date of Service: 09/25/17 Interval History: Patient seen and examined at bedside. Pt is lethargic this morning due to the ativan and haldol that he received overnight. Received call from [facility] staff that Pt was having angelica stoke respirations, this was not noted by the time I presented to the bedside. Unable to perform review of symptoms due to lethargy. Tele: Sinus arrhythmia, rate 70-80's. Pt noted to have trigeminy yesterday. Family History: Unchanged from Admission Social History: Unchanged from Admission Past Medical History: Unchanged from Admission Objective Active Medications: Acetaminophen (Tylenol Tab*) 650 mg PO Q6H PRN Reason: FEVER/PAIN Aspirin (Aspirin Ec Tab*) 81 mg PO DAILY [facility] Dextrose (D50w Syringe 50 Ml*) 12.5 gm IV PUSH .FOR FS < 60 - SS PRN Reason: FS < 60 Diltiazem HCl (Cardizem Tab*) 60 mg PO Q6HR [facility] Haloperidol Lactate (Haldol Inj Iv/Im*) 5 mg IV SLOW PU Q6H PRN Reason: AGITATION Heparin Sodium (Porcine) (Heparin Vial(*)) 5,000 units SUBCUT Q8HR [facility] Ceftriaxone Sodium 1,000 mg/ (Sodium Chloride) 10 mls @ 40 mls/hr IVPB Q24H [facility] Sodium Chloride (Ns 0.45% 1000 Ml Bag*) 1,000 mls @ 100 mls/hr IV PER RATE [facility] Insulin Human Lispro (Humalog*) 0 units SUBCUT ACHS [facility] Lorazepam (Ativan Inj*) 1 mg IV PUSH Q4HR PRN Reason: ANXIETY Morphine Sulfate (Morphine Inj (Syringe)*) 2 mg IV Q4H PRN Reason: PAIN - MILD Ondansetron HCl (Zofran Inj*) 4 mg IV Q6H PRN Reason: NAUSEA Venlafaxine HCl (Effexor Xr Cap*) 75 mg PO DAILY [facility] Vital Signs - 8 hr 09/25/17 09/25/17 09/25/17 03:36 05:08 06:15 Temperature 97.9 F Pulse Rate 80 Respiratory 16 18 16 Rate Blood Pressure 108/72 (mmHg) O2 Sat by Pulse 99 Oximetry 09/25/17 08:03 Temperature 97.6 F Pulse Rate 75 Respiratory 16 Rate Blood Pressure 118/54 (mmHg) O2 Sat by Pulse 96 Oximetry Oxygen Devices in Use Now: Nasal Cannula - 2L Appearance: NAD, sitting up in bed Respiratory: Symmetrical Chest Expansion and Respiratory Effort, Clear to Auscultation - , diminished. Anterior Cardiovascular: NL Sounds; No Murmurs; No JVD, RRR Abdominal: NL Sounds; No Tenderness; No Distention Extremities: No Edema Skin: No Rash or Ulcers Neurological: - - Lethargic Lines/Tubes/Other Access: Clean, Dry and Intact Peripheral IV - site benign Nutrition: Taking PO's Result Diagrams: 09/25/17 05:58 09/25/17 05:58 Microbiology and Other Data: Microbiology 09/24/17 02:20 Nasal Screen MRSA (PCR)(RAQUEL) - Final Nasal Mrsa Not Detected Assess/Plan/Problems-Billing Assessment: Mr. Sarah is a 77 yo male with PMH significant for dementia, depression, HTN, glaycoma, HLD and DM who presented tot emergency room with complaints of altered mental status. - Patient Problems (1) Acute kidney injury Code(s): N17.9 - ACUTE KIDNEY FAILURE, UNSPECIFIED SNOMED Code(s): 26248834 Comment: - Improving with fluids. - Intrinsic by FENa. - Suspect secondary to dehydration causing ATN. - Rhabdomyolysis also probably contributing to a certain degree. - Continue IVFs (2) Dehydration Code(s): E86.0 - DEHYDRATION SNOMED Code(s): 55928160 Comment: - Severe by lab work. Due to poor oral intake, reportedly spitting out all food at [facility] for a week and likely diuresis from hyperglycemia. - Continue 1/2 NS due to hypernatremia. (3) Atrial fibrillation Code(s): I48.91 - UNSPECIFIED ATRIAL FIBRILLATION SNOMED Code(s): 40718860 Comment: - Heart Rate regular this AM. Sinus arrythmia on tele. - Went into rapid Afib on 09/24, spontaneously converted back in afternoon on Cardizem drip. - Continue PO cardizem, change to CD in the AM. (4) Lactic acidosis Code(s): E87.2 - ACIDOSIS SNOMED Code(s): 66615370 Comment: - 5.0 on admission. - Decreased to 1.6. - Possibly due to DEB in conjunction with metformin. - Continue to hold metformin. (5) UTI (urinary tract infection) Comment: - No growth on urine Culture. - Discontinue Ceftriaxone. (6) Hypernatremia Code(s): E87.0 - HYPEROSMOLALITY AND HYPERNATREMIA SNOMED Code(s): 48052730 Comment: - Suspect secondary to dehydration - Continue D5 1/2 NS (7) Elevated troponin Code(s): R74.8 - ABNORMAL LEVELS OF OTHER SERUM ENZYMES SNOMED Code(s): 743629705 Comment: - Suspect secondary to demand ischemia - Will add a troponin to this AM's labs - No further intervention at this time (8) Dementia Code(s): F03.90 - UNSPECIFIED DEMENTIA WITHOUT BEHAVIORAL DISTURBANCE SNOMED Code(s): 82319616 Comment: - Advanced. - Likely with delirium due to transition to [facility]. Discussed palliative care with family and they would like to see what patient's new baseline is after correction of metabolic abnormalities. (9) Falls Comment: - Frequent falls at [facility]. (10) Type II diabetes mellitus Comment: - HgA1C 8.3 - Poor control. - Hold metformin and continue SSI and FSBG AC. Likely contributing to dehydration. - Consider other oral medications or insulin at discharge. (11) DVT prophylaxis Code(s): LPG3352 - SNOMED Code(s): 390064090 Comment: - Heparin SubQ. (12) DNR (do not resuscitate) Status and Disposition: Inpatient. Discharge when medically stable, back to [facility] at discharge.
[2017-09-25] MEDS: Insulin LISPRO* 1 UNITS UNIT SUBCUT SCH ×4 (09:38→21:34)
[2017-09-25] MEDS: Venlafaxine EXT RELEASE CAP* 75 MG PO SCH (11:17)
[2017-09-25] MEDS: Aspirin EC TAB* 81 MG TAB.EC PO SCH (11:17)
[2017-09-25] MEDS: QUEtiapine TAB* 25 MG PO SCH (21:34)
[2017-09-26] MEDS: NS 0.45% 1000 ML BAG* 1,000 ML IV SCH ×4 (01:28→23:04)
[2017-09-26] MEDS: Heparin VIAL(*) 5000 UNITS/ML VIAL (FIVE THOUSAND) SUBCUT SCH ×3 (05:49→20:29)
[2017-09-26 06:02] LABS: EGFR Non-African American 54.7 (>60)
--- NOTE | 2017-09-26 07:55 | ED ---
Jasbir Mccray Angela, scribed for Melchor Rock MD on 09/23/17 at 1634 . Altered Mental Status - HPI Summary HPI Summary: This pt is a 77 y/o male presenting to [facility] via EMS from [facility] for increased confusion and combativeness. Pt has a hx of Alzheimer's disease. Per senior care staff, pt has been more confused than baseline and has been combative. Pt was recently admitted to [facility]. HPI IS LIMITED DUE TO LEVEL 5 CAVEAT - AMS. - History Of Current Complaint Chief Complaint: EDAltMentalStatus Stated Complaint: AMS Time Seen by Provider: 09/23/17 16:26 Hx Obtained From: Patient Hx From Patient Unobtainable Due To: Altered Mental Status Onset/Duration: Still Present Severity Currently: Moderate Character: Confusion Aggravating Factor(s): Unknown Alleviating Factor(s): Unknown - Allergies/Home Medications Allergies/Adverse Reactions: Allergies Allergy/AdvReac Type Severity Reaction Status Date / Time No Known Allergies Allergy Verified 09/07/17 13:15 Home Medications: Home Medications LORazepam TAB(*) [Ativan 1 MG TAB (*)] 1 mg PO ONCE 09/23/17 [History Confirmed 09/23/17] PMH/Surg Hx/FS Hx/Imm Hx Endocrine/Hematology History: Reports: Hx Diabetes Denies: Hx Thyroid Disease Cardiovascular History: Reports: Hx Hypertension Respiratory History: Denies: Hx Asthma, Hx Chronic Obstructive Pulmonary Disease (COPD) GI History: Denies: Hx Ulcer Musculoskeletal History: Reports: Other Musculoskeletal History - Generalized weakness Sensory History: Reports: Hx Glaucoma - Pt's family states he is almost blind. Denies: Hx Contacts or Glasses, Hx Hearing Aid Opthamlomology History: Reports: Hx Glaucoma - Pt's family states he is almost blind. Denies: Hx Contacts or Glasses Neurological History: Reports: Hx Dementia, Other Neuro Impairments/Disorders - Alzheimer's disease Psychiatric History: Reports: Hx Depression - Surgical History Surgery Procedure, Year, and Place: RIGHT shoulder rotator cuff repair more than 10 years ago Infectious Disease History: No Infectious Disease History: Denies: Hx Hepatitis, Hx Human Immunodeficiency Virus (HIV), Traveled Outside the [place] in Last 30 Days - Family History Known Family History: Positive: Unknown - due to level 5 caveat - AMS - Social History Alcohol Use: None Substance Use Type: Reports: None Smoking Status (MU): Former Smoker Review of Systems - ROS Summary Review of Systems Summary: ROS IS LIMITED DUE TO LEVEL 5 CAVEAT - pt has AMS Negative: Fever Neurological: Other - POS: altered mental status, combative All Other Systems Reviewed And Are Negative: No Physical Exam - Summary Physical Exam Summary: VITAL SIGNS: Reviewed. GENERAL: Patient is a well-developed and nourished male who is lying comfortable in the stretcher. Patient is not in any acute respiratory distress. HEAD AND FACE: No signs of trauma. No ecchymosis, hematomas or skull depressions. No sinus tenderness. EYES: PERRLA, EOMI x 2, No injected conjunctiva, no nystagmus. EARS: Hearing grossly intact. Ear canals and tympanic membranes are within normal limits. MOUTH: Oropharynx within normal limits. NECK: Supple, trachea is midline, no adenopathy, no JVD, no carotid bruit, no c- spine tenderness, neck with full ROM. CHEST: Symmetric, no tenderness at palpation LUNGS: Clear to auscultation bilaterally. No wheezing or crackles. CVS: Regular rate and rhythm, S1 and S2 present, no murmurs or gallops appreciated. ABDOMEN: Soft, non-tender. No signs of distention. No rebound no guarding, and no masses palpated. Bowel sounds are normal. EXTREMITIES: FROM in all major joints, no edema, no cyanosis or clubbing. Moving all extremities. NEURO: Alert but not oriented. No acute neurological deficits. Speech is normal and follows commands. SKIN: Dry and warm GCS: 15 Triage Information Reviewed: Yes Vital Signs On Initial Exam: Initial Vitals Temp Pulse Resp BP Pulse Ox 97.1 F 106 20 121/72 97 09/23/17 16:15 09/23/17 16:15 09/23/17 16:15 09/23/17 16:15 09/23/17 16:15 Vital Signs Reviewed: Yes Completion Of Physical Exam Limited Due To: Altered Mental Status Diagnostics - Vital Signs Vital Signs Temp Pulse Resp BP Pulse Ox 09/23/17 16:15 97.1 F 106 20 121/72 97 - Laboratory Result Diagrams: 09/23/17 17:10 09/23/17 16:45 Lab Statement: Any lab studies that have been ordered have been reviewed, and results considered in the medical decision making process. - Radiology Chest XR Xray Interpretation: No Acute Changes - IMPRESSION: No active disease. Dr. Rock has reviewed this radiology report. Radiology Interpretation Completed By: Radiologist - CT Brain CT CT Interpretation: No Acute Changes - IMPRESSION: Limited examination due to the patient's inability to cooperate. Advanced cortical atrophy with chronic microvascular ischemic changes. No acute findings. Dr. Rock has reviewed this radiology report. CT Interpretation Completed By: Radiologist Altered Mental Statu Course/Dx - Course Assessment/Plan: This pt is a 77 y/o male presenting [facility] via [facility] from [facility] for increased confusion and combative. Pt has a hx of Alzheimer's disease. Per senior care staff, pt has been more confused than baseline and has been combative. Pt was recently admitted to [facility]. HPI IS LIMITED DUE TO LEVEL 5 CAVEAT - AMS. Test results show WBC of 20.7, with left shift, acute renal failure, hyperglycemia, lactic acid of 5, CPK of 954, troponin of 0.07. Urinalysis is positive for UTI. Brain CT: Limited examination due to the patient's inability to cooperate. Advanced cortical atrophy with chronic microvascular ischemic changes. No acute findings. Chest XR: No active disease. In the ED course the pt was given IV fluids for hydration and rocephin for UTI. At this point I discussed the test results and findings with Dr. Zaman, hospitalist, who accepted the pt for admission. Pt is hemodynamically stable, alert and not oriented. Dx: UTI, sepsis, acute renal failure, elevated troponin, rule out ACS, rhabdomyolysis. - Diagnoses Provider Diagnoses: UTI (urinary tract infection), Sepsis, Acute renal failure, Elevated troponin, Rhabdomyolysis - Provider Notifications Discussed Care Of Patient With: Deon Zaman Time Discussed With Above Provider: 17:55 Instructed by Provider To: Other - I discussed pt care with Dr. Zaman, hospitalist, who has agreed to admit the pt. - Critical Care Time Critical Care Time: 75-104 min Discharge - Sign-Out/Discharge Documenting (check all that apply): Discharge - admit to [facility] - Discharge Plan Condition: Stable Disposition: ADMITTED TO [facility] Referrals: Bryan Duff MD [Primary Care Provider] - The documentation as recorded by the Jasbir newton Angela accurately reflects the service I personally performed and the decisions made by Pranav carrasquillo Walter, MD.
[2017-09-26] MEDS: Insulin LISPRO* 1 UNITS UNIT SUBCUT SCH ×4 (09:17→20:29)
[2017-09-26] MEDS: Aspirin EC TAB* 81 MG TAB.EC PO SCH (09:18)
[2017-09-26] MEDS: Diltiazem CD CAP* 240 MG PO SCH (09:19)
[2017-09-26] MEDS: Venlafaxine EXT RELEASE CAP* 75 MG PO SCH (09:20)
--- NOTE | 2017-09-26 14:17 | PN ---
Subjective Date of Service: 09/26/17 Interval History: Patient seen and examined at bedside. Denies fever, chills, chest pain. Pt is more awake today and has eaten dinner last night and breakfast this AM. Pt declined lunch. He has been less agitated today, then he has previously been. Tele: Sinus arrhythmia, rate 70-80's Family History: Unchanged from Admission Social History: Unchanged from Admission Past Medical History: Unchanged from Admission Objective Active Medications: Acetaminophen (Tylenol Tab*) 650 mg PO Q6H PRN Reason: FEVER/PAIN Aspirin (Aspirin Ec Tab*) 81 mg PO DAILY [facility] Dextrose (D50w Syringe 50 Ml*) 12.5 gm IV PUSH .FOR FS < 60 - SS PRN Reason: FS < 60 Diltiazem HCl (Cardizem Cd Cap*) 240 mg PO DAILY [facility] Haloperidol Lactate (Haldol Inj Iv/Im*) 5 mg IV SLOW PU Q6H PRN Reason: AGITATION Heparin Sodium (Porcine) (Heparin Vial(*)) 5,000 units SUBCUT Q8HR [facility] Sodium Chloride (Ns 0.45% 1000 Ml Bag*) 1,000 mls @ 100 mls/hr IV PER RATE [facility] Insulin Human Lispro (Humalog*) 0 units SUBCUT ACHS [facility] Morphine Sulfate (Morphine Inj (Syringe)*) 2 mg IV Q4H PRN Reason: PAIN - MILD Ondansetron HCl (Zofran Inj*) 4 mg IV Q6H PRN Reason: NAUSEA Quetiapine Fumarate (Seroquel Tab*) 12.5 mg PO BEDTIME [facility] Venlafaxine HCl (Effexor Xr Cap*) 75 mg PO DAILY [facility] Vital Signs - 8 hr 09/26/17 09/26/17 09/26/17 07:31 07:34 07:46 Temperature 98.8 F Pulse Rate 42 71 Respiratory 20 15 Rate Blood Pressure 98/41 (mmHg) O2 Sat by Pulse 93 Oximetry 09/26/17 11:29 Temperature Pulse Rate 107 Respiratory 16 Rate Blood Pressure 128/67 (mmHg) O2 Sat by Pulse 98 Oximetry Oxygen Devices in Use Now: None Appearance: NAD, laying in bed Ears/Nose/Mouth/Throat: Mucous Membranes Moist Respiratory: Symmetrical Chest Expansion and Respiratory Effort, Clear to Auscultation Cardiovascular: NL Sounds; No Murmurs; No JVD, RRR Abdominal: NL Sounds; No Tenderness; No Distention Extremities: No Edema Skin: No Rash or Ulcers Neurological: - - Alert and Oriented to Person, confused Lines/Tubes/Other Access: Clean, Dry and Intact Peripheral IV - site benign Nutrition: Taking PO's Result Diagrams: 09/25/17 05:58 09/26/17 05:36 Microbiology and Other Data: Microbiology 09/24/17 02:20 Nasal Screen MRSA (PCR)(RAQUEL) - Final Nasal Mrsa Not Detected Assess/Plan/Problems-Billing Assessment: Mr. Sarah is a 77 yo male with PMH significant for dementia, depression, HTN, glaucoma, HLD and DM who presented to the emergency room with complaints of altered mental status. - Patient Problems (1) Acute kidney injury Code(s): N17.9 - ACUTE KIDNEY FAILURE, UNSPECIFIED SNOMED Code(s): 34382942 Comment: - Improving with fluids. - Intrinsic by FENa. - Suspect secondary to dehydration causing ATN. - Rhabdomyolysis also probably contributing to a certain degree. - Continue IVFs (2) Dehydration Code(s): E86.0 - DEHYDRATION SNOMED Code(s): 59570987 Comment: - Improving. - Severe by lab work. Due to poor oral intake, reportedly spitting out all food at [facility] for a week and likely diuresis from hyperglycemia. - Continue 1/2 NS due to hypernatremia. (3) Atrial fibrillation Code(s): I48.91 - UNSPECIFIED ATRIAL FIBRILLATION SNOMED Code(s): 27001222 Comment: - Heart Rate regular this AM. Sinus arrythmia on tele. - Went into rapid Afib on 09/24, spontaneously converted back in afternoon on Cardizem drip. - Continue cardizem. (4) Lactic acidosis Code(s): E87.2 - ACIDOSIS SNOMED Code(s): 42237714 Comment: - 5.0 on admission. - Decreased to 1.6. - Possibly due to DEB in conjunction with metformin. - Continue to hold metformin. (5) UTI (urinary tract infection) Comment: - No growth on urine Culture. - Discontinue Ceftriaxone. (6) Hypernatremia Code(s): E87.0 - HYPEROSMOLALITY AND HYPERNATREMIA SNOMED Code(s): 89855208 Comment: - Resolved - Suspect secondary to dehydration - Continue D5 1/2 NS (7) Elevated troponin Code(s): R74.8 - ABNORMAL LEVELS OF OTHER SERUM ENZYMES SNOMED Code(s): 916497155 Comment: - Suspect secondary to demand ischemia - Troponin peaked at 0.10 - No further work-up at this time (8) Dementia Code(s): F03.90 - UNSPECIFIED DEMENTIA WITHOUT BEHAVIORAL DISTURBANCE SNOMED Code(s): 87241191 Comment: - Advanced. - Likely with delirium due to transition to [facility]. Discussed palliative care with family and they would like to see what patient's new baseline is after correction of metabolic abnormalities. (9) Falls Comment: - Frequent falls at [facility]. (10) Type II diabetes mellitus Comment: - HgA1C 8.3 - Glucose 150-170's - Hold metformin and continue SSI and FSBG AC. Likely contributing to dehydration. - Consistent carb diet at discharge and consider other oral medications or insulin at if glucose continues to be elevated. (11) DVT prophylaxis Code(s): IWR2563 - SNOMED Code(s): 014563642 Comment: - Heparin SubQ. (12) DNR (do not resuscitate) Status and Disposition: Inpatient. Discharge when medically stable, back to [facility] at discharge. Plan for discharge in the AM.
[2017-09-26] MEDS: QUEtiapine TAB* 25 MG PO SCH (20:28)
[2017-09-27] MEDS: Haloperidol INJ IV/IM* 5 MG/ML AMP IV SLOW PU PRN ×2 (00:10→10:58)
[2017-09-27] MEDS: Heparin VIAL(*) 5000 UNITS/ML VIAL (FIVE THOUSAND) SUBCUT SCH (04:56)
[2017-09-27 05:41] LABS: EGFR Non-African American 64.6 (>60)
[2017-09-27] MEDS: Venlafaxine EXT RELEASE CAP* 75 MG PO SCH (08:30)
[2017-09-27] MEDS: Aspirin EC TAB* 81 MG TAB.EC PO SCH (08:30)
[2017-09-27] MEDS: Diltiazem CD CAP* 240 MG PO SCH (08:30)
[2017-09-27 08:32] VITALS: BP 134/83
[2017-09-27] MEDS: Insulin LISPRO* 1 UNITS UNIT SUBCUT SCH (08:32)
--- NOTE | 2017-09-27 09:08 | PN ---
Subjective Date of Service: 09/27/17 Interval History: Patient seen and examined at bedside. Denies fever, chills, shortness of breath , chest discomfort, N/V/D. Pt's behavior is improving, he occasionally is agitated. He ate some breakfast this morning. Family History: Unchanged from Admission Social History: Unchanged from Admission Past Medical History: Unchanged from Admission Objective Active Medications: Acetaminophen (Tylenol Tab*) 650 mg PO Q6H PRN Reason: FEVER/PAIN Aspirin (Aspirin Ec Tab*) 81 mg PO DAILY [facility] Dextrose (D50w Syringe 50 Ml*) 12.5 gm IV PUSH .FOR FS < 60 - SS PRN Reason: FS < 60 Diltiazem HCl (Cardizem Cd Cap*) 240 mg PO DAILY [facility] Haloperidol Lactate (Haldol Inj Iv/Im*) 5 mg IV SLOW PU Q6H PRN Reason: AGITATION Heparin Sodium (Porcine) (Heparin Vial(*)) 5,000 units SUBCUT Q8HR [facility] Sodium Chloride (Ns 0.45% 1000 Ml Bag*) 1,000 mls @ 75 mls/hr IV PER RATE [facility] Insulin Human Lispro (Humalog*) 0 units SUBCUT ACHS [facility] Morphine Sulfate (Morphine Inj (Syringe)*) 2 mg IV Q4H PRN Reason: PAIN - MILD Ondansetron HCl (Zofran Inj*) 4 mg IV Q6H PRNReason: NAUSEA Quetiapine Fumarate (Seroquel Tab*) 12.5 mg PO BEDTIME [facility] Venlafaxine HCl (Effexor Xr Cap*) 75 mg PO DAILY [facility] Vital Signs - 8 hr 09/27/17 07:35 Temperature 97.9 F Pulse Rate 70 Respiratory 16 Rate Blood Pressure 134/83 (mmHg) O2 Sat by Pulse 99 Oximetry Oxygen Devices in Use Now: None Appearance: NAD, laying in bed Ears/Nose/Mouth/Throat: Mucous Membranes Moist Respiratory: Symmetrical Chest Expansion and Respiratory Effort, Clear to Auscultation Cardiovascular: NL Sounds; No Murmurs; No JVD, RRR Abdominal: NL Sounds; No Tenderness; No Distention Extremities: No Edema Skin: No Rash or Ulcers Neurological: - - Alert and Confused. Lines/Tubes/Other Access: Clean, Dry and Intact Peripheral IV - site benign Nutrition: Taking PO's Result Diagrams: 09/25/17 05:58 09/27/17 05:08 Microbiology and Other Data: Microbiology 09/24/17 02:20 Nasal Screen MRSA (PCR)(RAQUEL) - Final Nasal Mrsa Not Detected Assess/Plan/Problems-Billing Assessment: Mr. Sarah is a 77 yo male with PMH significant for dementia, depression, HTN, glaucoma, HLD and DM who presented to the emergency room with complaints of altered mental status. - Patient Problems (1) Acute kidney injury Code(s): N17.9 - ACUTE KIDNEY FAILURE, UNSPECIFIED SNOMED Code(s): 68078863 Comment: - Resolved with fluids. - Intrinsic by FENa. - Suspect secondary to dehydration causing ATN. - Rhabdomyolysis also probably contributing to a certain degree. (2) Dehydration Code(s): E86.0 - DEHYDRATION SNOMED Code(s): 63083331 Comment: - Resolved. - Severe by lab work. Due to poor oral intake, reportedly spitting out all food at [facility] for a week and likely diuresis from hyperglycemia. (3) Atrial fibrillation Code(s): I48.91 - UNSPECIFIED ATRIAL FIBRILLATION SNOMED Code(s): 76302458 Comment: - Heart Rate regular this AM. - Went into rapid Afib on 09/24, spontaneously converted back in afternoon on Cardizem drip. - Continue cardizem. (4) Lactic acidosis Code(s): E87.2 - ACIDOSIS SNOMED Code(s): 17101522 Comment: - Resolved - 5.0 on admission and decreased to 1.6. - Possibly due to DEB in conjunction with metformin. - Continue to hold metformin. (5) UTI (urinary tract infection) Comment: - No growth on urine Culture. - Discontinue Ceftriaxone. (6) Hypernatremia Code(s): E87.0 - HYPEROSMOLALITY AND HYPERNATREMIA SNOMED Code(s): 43381341 Comment: - Resolved - Suspect secondary to dehydration (7) Elevated troponin Code(s): R74.8 - ABNORMAL LEVELS OF OTHER SERUM ENZYMES SNOMED Code(s): 840475996 Comment: - Suspect secondary to demand ischemia - Troponin peaked at 0.10 - No further work-up at this time (8) Dementia Code(s): F03.90 - UNSPECIFIED DEMENTIA WITHOUT BEHAVIORAL DISTURBANCE SNOMED Code(s): 34060171 Comment: - Advanced. - Likely with delirium due to transition to [facility]. Discussed palliative care with family and they would like to see what patient's new baseline is after correction of metabolic abnormalities. (9) Falls Comment: - Frequent falls at [facility]. (10) Type II diabetes mellitus Comment: - HgA1C 8.3 - Glucose 150-170's - Hold metformin and continue SSI and FSBG AC. Likely contributing to dehydration. - Consistent carb diet at discharge and consider other oral medications or insulin at if glucose continues to be elevated. (11) DVT prophylaxis Code(s): HRZ8813 - SNOMED Code(s): 986961007 (12) DNR (do not resuscitate) Status and Disposition: Inpatient. Stable for discharge to [facility] today.
--- NOTE | 2017-09-27 11:31 | DS ---
CC: Dr. Bryan Duff; [facility] * DISCHARGE SUMMARY: DATE OF ADMISSION: 09/23/17 DATE OF DISCHARGE: 09/27/17 ATTENDING PHYSICIAN: Zoraida Franks MD * (dictated by Lissa Servin NP). PRIMARY CARE PHYSICIAN: Dr. Bryan Duff PRIMARY DIAGNOSES: 1. Delirium. 2. Severe dehydration. 3. Atrial fibrillation. 4. Lactic acidosis, resolved. 5. Type 2 diabetes. 6. Hypernatremia, resolved. 7. Hypertroponinemia suspect secondary to demand ischemia. SECONDARY DIAGNOSES: 1. Dementia. 2. Diabetes mellitus type 2. 3. Frequent falls. STUDIES WHILE IN THE HOSPITAL: 1. Brain CT on 09/23/17. Radiologist's impression: Limited examination due to patient's inability to cooperate. Advanced cortical atrophy with chronic microvascular ischemic changes. No acute findings. 2. Chest x-ray on 09/23/17. Radiologist's impression: No active disease. MEDICATIONS: New home medications: 1. Seroquel 12.5 mg oral daily at bedtime. 2. Acetaminophen 650 mg oral every 6 hours as needed for fever or pain. 3. Diltiazem CD 240 mg oral daily. 4. Haldol 5 mg IM every 8 hours as needed for severe agitation. Continued home medications: 1. Effexor XR 75 mg oral daily. 2. Aspirin 81 mg oral daily. 3. Multivitamin 1 tablet oral daily. Discontinued home medications: 1. Prozac. 2. Irbesartan/hydrochlorothiazide. 3. Metformin. 4. Trazodone. 5. Lorazepam. HISTORY OF PRESENT ILLNESS: Mr. Sarah is a 77-year-old male with past medical history significant for advanced dementia, depression, hypertension, hyperlipidemia and diabetes mellitus type 2, who presented to emergency room with altered mental status. The patient was discharged to [facility] on . Since then, he had been getting progressively more altered and agitated. The patient was having frequent falls, had been falling out of his bed on to a mat, which had been placed next to his bed. Recently he has had no injuries. The patient started spitting out his food and was not oriented at all. The patient had fallen 3 times in 1 day and was not eating. Due to his increased agitation and altered mental status, he was sent to the emergency room for further evaluation of his symptoms. While in the emergency room, the patient was found to have a white blood cell count of 20.7, creatinine 3.42, BUN of 76, anion gap of 18, lactic acid of 5, glucose of 349 and troponin of 0.07. He had a brain CT showing no acute findings in addition to a chest x-ray with no acute findings. Hospitalist were asked to evaluate the patient for admission. During the patient's hospitalization, he received IV fluids and his severe dehydration resolved, his acute kidney injury resolved. It was felt that the metformin that he was on was contributing to his dehydration and lactic acidosis and that was discontinued. He had a hemoglobin A1c of 8.3. The patient's troponins were trended, peaking at 0.10. It was felt likely to be due to dehydration and demand ischemia. The patient's family did not want any further cardiac workup. During his stay, he developed atrial fibrillation, he spontaneously converted back to sinus rhythm after being placed on a Cardizem drip. He was transitioned from a Cardizem drip to oral Cardizem. Initially it was felt that patient had a urinary tract infection, but his urine culture had no growth and his IV antibiotics were discontinued. Initially, in the hospital , the patient was very agitated receiving a lot of sedating medications. His behavior improved. He was started on a low dose Seroquel, he began eating some of his meals. There was a family meeting held and the family would like the patient to be comfortable, they would like to give him a while to see if this is his new baseline before they decide whether or not to pursue palliative care services. Mr. Sarah is stable for discharge to [facility] today. Vitals signs are as follows: Temperature 97.9, heart rate 70, respiratory rate 18, O2 sat 99% on room air, blood pressure 134/83. DISCHARGE PLAN: Mr. Sarah will be discharged to [facility] today. Activity as tolerated. He should be on a consistent carbohydrate diet. In regards to his dementia and delirium, he has been started on a low dose Seroquel 12.5 mg daily at bedtime; this could be titrated up if needed. He could also have Haldol IM as needed for severe agitation. I would avoid benzodiazepines in this patient as it could worsen his confusion. Atrial fibrillation. The patient had a brief time of atrial fibrillation, converted on a Cardizem drip. He should be continued on Cardizem CD. I would not anticoagulate this patient due to his history of frequent falls. I feel the risk of anticoagulation outweighs his risk of having a stroke at this point. This could be readdressed later if he starts having fewer falls. He will be continued on a baby aspirin. In regards to the patient's type 2 diabetes, his hemoglobin A1c is 8.3. I recommend trying a consistent carbohydrate diet for now. If his glucose has remained reasonably controlled, I would do nothing more than a consistent carbohydrate diet. Do not place the patient back on metformin. If he continues to have elevated glucoses, consider insulin sliding scale or long- acting insulin versus other diabetic agents. Please encourage the patient to eat and drink as able. His family reports coughing with a straw, he should not have straws and should have a formal Speech Therapy evaluation to see if he needs his diet further modified once he returns. The patient should return to the emergency room for any chest pain, shortness of breath. This is a summarized report of a complex medical history and hospital stay. For further details, please see the entire medical record. TIME SPENT: Time for this discharge was approximately 50 minutes, greater than half of that was spent with the patient and family discussing discharge plans and instructions. CONDITION ON DISCHARGE: Stable. Reviewed by MARGOTH PERDOMO 09/28/16 1819 [id number] #: [id number] [place]
== END 2017-09-27 12:19 | DRG 683 ==
LOC: ED 16:12 → MEDTELE 18:38
PROVIDERS: ADMIT Internal Medicine; ATTEND Internal Medicine
DX: N17.9 Acute kidney failure, unspecified (principal); F05 Delirium due to known physiological condition; I24.8 Other forms of acute ischemic heart disease; E87.2 Acidosis; E87.0 Hyperosmolality and hypernatremia; E86.0 Dehydration; G30.9 Alzheimer's disease, unspecified; F02.80 Dementia in other diseases classified elsewhere, unspecified severity, without behavioral disturbance, psychotic disturbance, mood disturbance, and anxiety; E11.9 Type 2 diabetes mellitus without complications; I48.91 Unspecified atrial fibrillation; Z66 Do not resuscitate; H40.9 Unspecified glaucoma; F32.9 Major depressive disorder, single episode, unspecified; E78.5 Hyperlipidemia, unspecified; I10 Essential (primary) hypertension; R00.8 Other abnormalities of heart beat; R29.6 Repeated falls; T38.3X5A Adverse effect of insulin and oral hypoglycemic [antidiabetic] drugs, initial encounter; Y92.129 Unspecified place in nursing home as the place of occurrence of the external cause; Z87.891 Personal history of nicotine dependence; Z82.49 Family history of ischemic heart disease and other diseases of the circulatory system; Z79.82 Long term (current) use of aspirin
CPT/HCPCS: 36415; 70450; 71045; 80048; 80053; 80307; 80320; 80329; 81003; 81015; 82140; 82550; 82570; 83605; 83735; 83874; 84300; 84443; 84484; 85025; 86140; 87040; 87086; 87641; 93005; 99284; A9270-GY; G0480; J0696; J1630; J1644; J2060; J2270; J3490

== ENCOUNTER 2017-10-13 15:51 | Observation (INO) | payer MEDICARE, BC ==
[2017-10-13] MEDS ORDERED: NS 0.9% 1000 ML* 2,000 ML IV ONE (16:08)
[2017-10-13] MEDS ORDERED: NS 0.9% 1000 ML* 1,000 ML IV ONE ×2 (16:29→19:13)
[2017-10-13] MEDS ORDERED: cefTRIAXone(*) 1 GM in NS 0.9% 50 ML* 50 ML IVPB ONE (16:29)
--- NOTE | 2017-10-13 16:50 | RAD ---
Indication: Confusion. Single frontal view of the chest performed at 1633 hours was reviewed. Comparison is made with previous exam dated September 23, 2017. No mediastinal shift is noted. Heart is of normal size and configuration. Lung ayers appear clear. IMPRESSION: NO ACTIVE CARDIOPULMONARY DISEASE IS NOTED.
[2017-10-13 16:54] LABS: ABS Basophils 0.1 10^3/ul (0-0.2); ABS Eosinophils 0 10^3/ul (0-0.6); ABS Lymphocytes 1.1 10^3/ul (1.0-4.8); ABS Monocytes 0.9 10^3/ul (0-0.8); ABS Neutrophils 12.1 10^3/ul (1.5-7.7); ABS Nucleated RBC 0 10^3/ul; Eosinophil % 0 % (0-6); Hematocrit 40 % (42-52); Hemoglobin 13.1 g/dl (14.0-18.0); Lymphocyte % 7.8 % (25-47); Mean Corpuscular HGB Conc 33 g/dl (31-36); Mean Corpuscular Hemoglobin 33 pg (27-31); Mean Corpuscular Volume 99 fL (80-94); Mean Platelet Volume 8.5 um3 (7.4-10.4); Nucleated Red Blood Cells % 0; Platelet Count 189 10^3/ul (150-450); Red Blood Count 4.05 10^6/ul (4.0-5.4); Red Cell Distribution Width 13 % (10.5-15); White Blood Count 14.2 10^3/ul (3.5-10.8)
[2017-10-13 17:04] LABS: INR 1.09 (0.77-1.02)
[2017-10-13 17:12] LABS: EGFR Non-African American 14.9 (>60)
[2017-10-13] MEDS ORDERED: Insulin REGULAR(*) 1 UNITS UNIT IV PUSH ONE (17:55)
[2017-10-13 18:40] LABS: Urine Appearance Cloudy; Urine Blood Negative (Negative); Urine Color Yellow; Urine Ketones Negative (Negative); Urine Protein Negative (Negative); Urine Urobilinogen Negative (Negative)
--- NOTE | 2017-10-13 19:00 | ED ---
Gabriel Mccray Thomas, scribed for Giovani Thompson MD on 10/13/17 at 1609 . Complex/Multi-Sys Presentation - HPI Summary HPI Summary: The patient is a 77 year old male brought in by ambulance from the correction with altered mental status. His blood sugar was measured 419 by EMS. At baseline , he is confused, reactive, but not oriented. In the examination room, he is nonverbal and obtunded. At baseline he is on 2L of oxygen NC. The patient had sepsis one week ago. He is DNR, DNI, and has a MOLST that specifies no chest compressions. LEVEL 5 CAVEAT: HPI limited by obtunded patient - History Of Current Complaint Time Seen by Provider: 10/13/17 15:57 Hx Obtained From: Patient Onset/Duration: Still Present Timing: Constant Severity Currently: Severe Associated Signs And Symptoms: Positive: Other - AMS - Allergies/Home Medications Allergies/Adverse Reactions: Allergies Allergy/AdvReac Type Severity Reaction Status Date / Time No Known Allergies Allergy Verified 09/07/17 13:15 Home Medications: Home Medications C,E,Zinc,Copper 11/Eixsp1k/Lut [Ocuvite Adult 50 Plus Softgel] 1 each PO DAILY 10/13/17 [History Confirmed 10/13/17] Donepezil TAB* [Aricept 5 MG TAB*] 10 mg PO BEDTIME 10/13/17 [History Confirmed 10/13/17] FLUoxetine CAP* [PROzac CAP*] 40 mg PO DAILY 10/13/17 [History Confirmed ] Fluticasone NASAL SPRAY 50MCG* [Flonase NASAL SPRAY 50MCG*] 2 spray BOTH NARES DAILY 10/13/17 [History Confirmed 10/13/17] Ibuprofen TAB* [Advil TAB*] 200 mg PO Q8H PRN 10/13/17 [History Confirmed ] Irbesartan/Hctz 300-12.5 1 tab PO DAILY 10/13/17 [History Confirmed 10/13/17] Latanoprost 0.005%* [Xalatan 0.005%*] 1 drop BOTH EYES DAILY 10/13/17 [History Confirmed 10/13/17] Memantine TAB* [Namenda TAB*] 10 mg PO BID 10/13/17 [History Confirmed 10/13/17] traZODone TAB* [Desyrel TAB*] 50 - 150 mg PO BEDTIME PRN 10/13/17 [History Confirmed 10/13/17] PMH/Surg Hx/FS Hx/Imm Hx Endocrine/Hematology History: Reports: Hx Diabetes Denies: Hx Thyroid Disease Cardiovascular History: Reports: Hx Hypertension Respiratory History: Denies: Hx Asthma, Hx Chronic Obstructive Pulmonary Disease (COPD) GI History: Denies: Hx Ulcer Musculoskeletal History: Reports: Other Musculoskeletal History - Generalized weakness Sensory History: Reports: Hx Glaucoma - Pt's family states he is almost blind. Denies: Hx Contacts or Glasses, Hx Hearing Aid Opthamlomology History: Reports: Hx Glaucoma - Pt's family states he is almost blind. Denies: Hx Contacts or Glasses Neurological History: Reports: Hx Dementia, Other Neuro Impairments/Disorders - Alzheimer's disease Psychiatric History: Reports: Hx Depression - Surgical History Surgery Procedure, Year, and Place: RIGHT shoulder rotator cuff repair more than 10 years ago Infectious Disease History: Denies: Hx Hepatitis, Hx Human Immunodeficiency Virus (HIV) - Family History Known Family History: Positive: Unknown - due to level 5 caveat - AMS - Social History Alcohol Use: None Substance Use Type: Reports: None Smoking Status (MU): Former Smoker Review of Systems - ROS Summary Review of Systems Summary: LEVEL 5 CAVEAT: ROS limited by obtunded patient Neurological: Other - AMS All Other Systems Reviewed And Are Negative: No Physical Exam - Summary Physical Exam Summary: General: He is obtunded and responds to pain Skin: warm, color reflects adequate perfusion, dry Head: normal Eyes: Pupils are 2 mm and nonreactive. ENT: normal Neck: supple, nontender Respiratory: CTA, breath sounds present Cardiovascular: RRR Abdomen: soft, nontender Bowel: present Musculoskeletal: There is not any pedal edema. He moves all four extremities to tactile stimulation. Neurological: He is obtunded. He responds to pain. He moves all four extremities to tactile stimulation. GCS 7. LEVEL 5 CAVEAT: Physical Exam limited by obtunded patient Triage Information Reviewed: Yes Vital Signs On Initial Exam: Initial Vitals Temp Pulse Resp BP Pulse Ox 96.4 F 68 19 87/55 97 10/13/17 16:01 10/13/17 16:01 10/13/17 16:01 10/13/17 16:01 10/13/17 16:01 Vital Signs Reviewed: Yes - Cleopatra Coma Scale Best Eye Response: 2 - To Pain Best Motor Response: 4 - Withdraws Best Verbal Response: 1 - None Coma Scale Total: 7 Diagnostics - Vital Signs Vital Signs Temp Pulse Resp BP Pulse Ox 10/13/17 17:32 98.3 F 10/13/17 17:29 21 86/50 10/13/17 17:01 78 19 97 10/13/17 17:00 78 21 78/58 98 10/13/17 16:30 21 94/63 10/13/17 16:02 78 20 100 10/13/17 16:01 96.4 F 80 20 87/55 92 - Laboratory Lab Results: Lab Results 10/13/17 10/13/17 10/13/17 Range/Units 16:40 16:40 16:40 WBC (3.5-10.8) 10^3/ul RBC (4.0-5.4) 10^6/ul Hgb (14.0-18.0) g/dl Hct (42-52) % MCV (80-94) fL MCH (27-31) pg MCHC (31-36) g/dl RDW (10.5-15) % Plt Count (150-450) 10^3/ul MPV (7.4-10.4) um3 Neut % (Auto) (38-83) % Lymph % (Auto) (25-47) % Mcdowell % (Auto) (0-7) % Eos % (Auto) (0-6) % Baso % (Auto) (0-2) % Absolute Neuts (auto) (1.5-7.7) 10^3/ul Absolute Lymphs (auto) (1.0-4.8) 10^3/ul Absolute Monos (auto) (0-0.8) 10^3/ul Absolute Eos (auto) (0-0.6) 10^3/ul Absolute Basos (auto) (0-0.2) 10^3/ul Absolute Nucleated RBC 10^3/ul Nucleated RBC % INR (Anticoag Therapy) 1.09 H (0.77-1.02) APTT 27.1 (26.0-36.3) seconds D-Dimer, Quantitative > 1050 H (Less Than 230) ng/mL VBG pH (7.33-7.43) VBG pCO2 (41-51) mmHg VBG pO2 (35-45) mmHg VBG HCO3 (24-28) mmol/L VBG O2 Saturation (70-80) % VBG Base Excess (0-4) Sodium 146 H (139-145) mmol/L Potassium 5.1 H (3.5-5.0) mmol/L Chloride 109 (101-111) mmol/L Carbon Dioxide 24 (22-32) mmol/L Anion Gap 13 H (2-11) mmol/L BUN 62 H (6-24) mg/dL Creatinine 3.93 H (0.67-1.17) mg/dL Est GFR ( Amer) 19.1 (>60) Est GFR (Non-Af Amer) 14.9 (>60) BUN/Creatinine Ratio 15.8 (8-20) Glucose 411 H (70-100) mg/dL Lactic Acid (0.5-2.0) mmol/L Calcium 9.6 (8.6-10.3) mg/dL Magnesium 3.0 H (1.9-2.7) mg/dL Total Bilirubin 1.30 H (0.2-1.0) mg/dL AST 24 (13-39) U/L ALT 52 (7-52) U/L Alkaline Phosphatase 163 H (34-104) U/L Ammonia 37 (16-53) mcmol/L Total Creatine Kinase 46 (10-223) U/L CK-MB (CK-2) 3.6 (0.6-6.3) ng/mL Troponin I 0.05 H* (<0.04) ng/mL C-Reactive Protein 11.16 H (< 5.00) mg/L B-Natriuretic Peptide 23 ( - 100) pg/mL Total Protein 7.0 (6.4-8.9) g/dL Albumin 3.5 (3.2-5.2) g/dL Globulin 3.5 (2-4) g/dL Albumin/Globulin Ratio 1.0 (1-3) Lipase 38 (11.0-82.0) U/L TSH 1.49 (0.34-5.60) mcIU/mL Urine Color Urine Appearance Urine pH (5-9) Ur Specific Brinnon (1.010-1.030) Urine Protein (Negative) Urine Ketones (Negative) Urine Blood (Negative) Urine Nitrate (Negative) Urine Bilirubin (Negative) Urine Urobilinogen (Negative) Ur Leukocyte Esterase (Negative) Urine WBC (Auto) (Absent) Urine RBC (Auto) (Absent) Ur Squamous Epith Cells (Absent) Urine Bacteria (Absent) Hyaline Casts (Absent) Urine Glucose (Negative) Urine Ascorbic Acid (Negative) Acetaminophen < 15 mcg/mL 10/13/17 10/13/17 10/13/17 Range/Units 16:40 16:40 16:40 WBC 14.2 H (3.5-10.8) 10^3/ul RBC 4.05 (4.0-5.4) 10^6/ul Hgb 13.1 L (14.0-18.0) g/dl Hct 40 L (42-52) % MCV 99 H (80-94) fL MCH 33 H (27-31) pg MCHC 33 (31-36) g/dl RDW 13 (10.5-15) % Plt Count 189 (150-450) 10^3/ul MPV 8.5 (7.4-10.4) um3 Neut % (Auto) 85.0 H (38-83) % Lymph % (Auto) 7.8 L (25-47) % Mcdowell % (Auto) 6.6 (0-7) % Eos % (Auto) 0 (0-6) % Baso % (Auto) 0.6 (0-2) % Absolute Neuts (auto) 12.1 H (1.5-7.7) 10^3/ul Absolute Lymphs (auto) 1.1 (1.0-4.8) 10^3/ul Absolute Monos (auto) 0.9 H (0-0.8) 10^3/ul Absolute Eos (auto) 0 (0-0.6) 10^3/ul Absolute Basos (auto) 0.1 (0-0.2) 10^3/ul Absolute Nucleated RBC 0 10^3/ul Nucleated RBC % 0 INR (Anticoag Therapy) (0.77-1.02) APTT (26.0-36.3) seconds D-Dimer, Quantitative (Less Than 230) ng/mL VBG pH 7.33 (7.33-7.43) VBG pCO2 46 (41-51) mmHg VBG pO2 24 L (35-45) mmHg VBG HCO3 21.9 L (24-28) mmol/L VBG O2 Saturation 42.1 L (70-80) % VBG Base Excess -1.9 L (0-4) Sodium (139-145) mmol/L Potassium (3.5-5.0) mmol/L Chloride (101-111) mmol/L Carbon Dioxide (22-32) mmol/L Anion Gap (2-11) mmol/L BUN (6-24) mg/dL Creatinine (0.67-1.17) mg/dL Est GFR ( Amer) (>60) Est GFR (Non-Af Amer) (>60) BUN/Creatinine Ratio (8-20) Glucose (70-100) mg/dL Lactic Acid 4.3 H* (0.5-2.0) mmol/L Calcium (8.6-10.3) mg/dL Magnesium (1.9-2.7) mg/dL Total Bilirubin (0.2-1.0) mg/dL AST (13-39) U/L ALT (7-52) U/L Alkaline Phosphatase (34-104) U/L Ammonia (16-53) mcmol/L Total Creatine Kinase (10-223) U/L CK-MB (CK-2) (0.6-6.3) ng/mL Troponin I (<0.04) ng/mL C-Reactive Protein (< 5.00) mg/L B-Natriuretic Peptide ( - 100) pg/mL Total Protein (6.4-8.9) g/dL Albumin (3.2-5.2) g/dL Globulin (2-4) g/dL Albumin/Globulin Ratio (1-3) Lipase (11.0-82.0) U/L TSH (0.34-5.60) mcIU/mL Urine Color Urine Appearance Urine pH (5-9) Ur Specific Brinnon (1.010-1.030) Urine Protein (Negative) Urine Ketones (Negative) Urine Blood (Negative) Urine Nitrate (Negative) Urine Bilirubin (Negative) Urine Urobilinogen (Negative) Ur Leukocyte Esterase (Negative) Urine WBC (Auto) (Absent) Urine RBC (Auto) (Absent) Ur Squamous Epith Cells (Absent) Urine Bacteria (Absent) Hyaline Casts (Absent) Urine Glucose (Negative) Urine Ascorbic Acid (Negative) Acetaminophen mcg/mL 10/13/17 Range/Units 18:15 WBC (3.5-10.8) 10^3/ul RBC (4.0-5.4) 10^6/ul Hgb (14.0-18.0) g/dl Hct (42-52) % MCV (80-94) fL MCH (27-31) pg MCHC (31-36) g/dl RDW (10.5-15) % Plt Count (150-450) 10^3/ul MPV (7.4-10.4) um3 Neut % (Auto) (38-83) % Lymph % (Auto) (25-47) % Mcdowell % (Auto) (0-7) % Eos % (Auto) (0-6) % Baso % (Auto) (0-2) % Absolute Neuts (auto) (1.5-7.7) 10^3/ul Absolute Lymphs (auto) (1.0-4.8) 10^3/ul Absolute Monos (auto) (0-0.8) 10^3/ul Absolute Eos (auto) (0-0.6) 10^3/ul Absolute Basos (auto) (0-0.2) 10^3/ul Absolute Nucleated RBC 10^3/ul Nucleated RBC % INR (Anticoag Therapy) (0.77-1.02) APTT (26.0-36.3) seconds D-Dimer, Quantitative (Less Than 230) ng/mL VBG pH (7.33-7.43) VBG pCO2 (41-51) mmHg VBG pO2 (35-45) mmHg VBG HCO3 (24-28) mmol/L VBG O2 Saturation (70-80) % VBG Base Excess (0-4) Sodium (139-145) mmol/L Potassium (3.5-5.0) mmol/L Chloride (101-111) mmol/L Carbon Dioxide (22-32) mmol/L Anion Gap (2-11) mmol/L BUN (6-24) mg/dL Creatinine (0.67-1.17) mg/dL Est GFR ( Amer) (>60) Est GFR (Non-Af Amer) (>60) BUN/Creatinine Ratio (8-20) Glucose (70-100) mg/dL Lactic Acid (0.5-2.0) mmol/L Calcium (8.6-10.3) mg/dL Magnesium (1.9-2.7) mg/dL Total Bilirubin (0.2-1.0) mg/dL AST (13-39) U/L ALT (7-52) U/L Alkaline Phosphatase (34-104) U/L Ammonia (16-53) mcmol/L Total Creatine Kinase (10-223) U/L CK-MB (CK-2) (0.6-6.3) ng/mL Troponin I (<0.04) ng/mL C-Reactive Protein (< 5.00) mg/L B-Natriuretic Peptide ( - 100) pg/mL Total Protein (6.4-8.9) g/dL Albumin (3.2-5.2) g/dL Globulin (2-4) g/dL Albumin/Globulin Ratio (1-3) Lipase (11.0-82.0) U/L TSH (0.34-5.60) mcIU/mL Urine Color Yellow Urine Appearance Cloudy Urine pH 5.0 (5-9) Ur Specific Brinnon 1.020 (1.010-1.030) Urine Protein Negative (Negative) Urine Ketones Negative (Negative) Urine Blood Negative (Negative) Urine Nitrate Negative (Negative) Urine Bilirubin Negative (Negative) Urine Urobilinogen Negative (Negative) Ur Leukocyte Esterase 1+ A (Negative) Urine WBC (Auto) 1+(6-10/hpf) A (Absent) Urine RBC (Auto) Absent (Absent) Ur Squamous Epith Cells Present A (Absent) Urine Bacteria Absent (Absent) Hyaline Casts Present A (Absent) Urine Glucose 3+(>=500 mg/dl) A (Negative) Urine Ascorbic Acid * A (Negative) Acetaminophen mcg/mL Result Diagrams: 10/13/17 16:40 10/13/17 16:40 Lab Statement: Any lab studies that have been ordered have been reviewed, and results considered in the medical decision making process. - Radiology CXR Xray Interpretation: No Acute Changes - IMPRESSION: NO ACTIVE CARDIOPULMONARY DISEASE IS NOTED. Dr. Thompson has reviewed this report. Radiology Interpretation Completed By: Radiologist - EKG 16:21 Cardiac Rate: NL EKG Rhythm: Sinus Rhythm - at [address] Segment: Normal Ectopy: PACs Complex Multi-Symp Course/Dx Course Of Treatment: DISCUSSED RESULTS WITH THE FAMILY. ADMIT HOSPITALIST. - Diagnoses Provider Diagnoses: Hypotension, Hyperglycemia, Altered mental state - Physician Notifications Discussed Care Of Patient With: Zoraida Franks Time Discussed With Above Provider: 18:57 Instructed by Provider To: Admit As Inpatient - Critical Care Time Critical Care Time: 30-74 min Discharge - Sign-Out/Discharge Documenting (check all that apply): Discharge/Admit/Transfer - Patient admitted by Dr. Franks - Discharge Plan Condition: Critical Disposition: ADMITTED TO [facility] Referrals: Bryan Duff MD [Primary Care Provider] - - Billing Disposition and Condition Condition: CRITICAL Disposition: [facility] [place] The documentation as recorded by the Gabriel newton Thomas accurately reflects the service I personally performed and the decisions made by me, Giovani Thompson MD.
[2017-10-13] MEDS ORDERED: LORazepam TAB(*) 1 MG SL PRN (20:23)
[2017-10-13] MEDS ORDERED: Atropine 1% (ORAL/SL)* 15 ML BTL SL PRN (20:23)
[2017-10-13] MEDS: Morphine ORAL CONCENTRATE* 5 MG/0.25 ML ORAL.SYRIN SL PRN (22:32)
[2017-10-13] MEDS ORDERED: LORazepam INJ* 2 MG/ML 1 ML VIAL IV PRN (22:33)
[2017-10-13] MEDS ORDERED: LORazepam INJ* 2 MG/ML 1 ML VIAL ONE (22:38)
[2017-10-13] MEDS: LORazepam INJ* 2 MG/ML 1 ML VIAL IV PRN (22:42)
[2017-10-13 22:49] VITALS: BP 98/64
[2017-10-14] MEDS: Morphine ORAL CONCENTRATE* 5 MG/0.25 ML ORAL.SYRIN SL PRN ×5 (00:44→14:08)
--- NOTE | 2017-10-14 01:51 | HP ---
CC: Dr. Duff; [facility].* HISTORY AND PHYSICAL: DATE OF ADMISSION: 10/13/17 PROVIDER: Scott Cintron NP. ATTENDING PHYSICIAN: Venancio Ledesma MD* (report dictated by Scott Cintron NP) PRIMARY CARE PROVIDER: Dr. Duff. CHIEF COMPLAINT: Altered mental status. HISTORY OF PRESENT ILLNESS: Mr. Sarah is a 77-year-old male with a past medical history significant for advanced dementia, diabetes, hyperlipidemia, hypertension, depression, who presents from [facility] with altered mental status. The patient was brought in by the ambulance from the [place] [facility] as he was obtunded and found to be unresponsive. The patient had a recent hospitalization from 09/23/17 to 09/27/17 for a similar presentation with altered mental status, severe dehydration, lactic acidosis, hypernatremia, was hospitalized, and given IV fluids along with IV antibiotics for a possible urinary tract infection; his urine culture had no growth. It was thought that this was secondary to the patient's declining and failure to thrive. A family meeting was had during that hospitalization and the plan was to see how the patient did with treatment and if he continued to decline, the family wanted to make him palliative care. The patient did respond to IV fluids and treatment during that hospitalization and was able to be discharged back to [facility], close to his prior baseline. I spoke with his daughter and , who stated that he did well for approximately a week and then started to decline again, refusing to eat, becoming weaker and not taking any p.o. intake. Per family, he has significant advanced dementia at his baseline. Today, in the emergency department, he was given IV fluids, ceftriaxone, and it was unclear etiology behind his altered mental status. He has a leukocytosis of 14 and noted hypernatremia, electrolyte abnormalities and acute renal failure as well as elevated lactic acid and presented with a blood glucose of 411. A family conversation was had with the patient's , who is a patient in the hospital, who is about to undergo back surgery. I met with the patient's and 2 daughters, and it was decided that the patient will be transitioned to palliative approach with a hospice consult tomorrow. The patient, in the emergency department has been very hypotensive with blood pressure in the 70s and 80s and continues to be obtunded, responding only to painful stimuli. PAST MEDICAL HISTORY: 1. Advanced dementia. 2. Alzheimer's. 3. Depression. 4. Hypertension. 5. Glaucoma. 6. Hyperlipidemia. 7. Type 2 diabetes. CURRENT MEDICATIONS: 1. Acetaminophen 650 mg p.o. q. 6 hours p.r.n. 2. Haldol IV/IM 5 mg q. 8 hours p.r.n. 3. Trazodone 50/150 mg p.o. at bedtime. 4. Effexor XR 75 mg p.o. daily. 5. Multivitamin 1 tab p.o. daily. 6. Namenda 10 mg p.o. b.i.d. 7. Latanoprost 0.005% 1 drop both eyes daily. 8. Irbesartan/hydrochlorothiazide 300/12.5 1 tab p.o. daily. 9. Ibuprofen 200 mg p.o. q. 8 hours p.r.n. 10. Fluticasone 50 mcg 2 sprays both nares daily. 11. Prozac 40 mg p.o. daily. 12. Aricept 10 mg p.o. at bedtime. 13. Aspirin 81 mg p.o. daily. ALLERGIES: No known allergies. FAMILY HISTORY: Reviewed and noncontributory. SOCIAL HISTORY: No history of smoking. 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 He is and his , Katherine Sarah is his healthcare proxy. He has 2 children and 5 step children. 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 REVIEW OF SYSTEMS: Unobtainable due to patient's altered mental status. PHYSICAL EXAMINATION GENERAL APPEARANCE: Elderly male, unresponsive, appears pale and clammy. VITAL SIGNS: Temperature 97.8, heart rate 85, respirations 18, O2 sat 97% on 2 L, blood pressure 72/47. HEENT: Head is normocephalic, atraumatic. Pupils are equal and reactive to light. Dry mucous membranes. LUNGS: Diminished bilaterally. CARDIAC: S1, S2. Regular rate and rhythm. No lower extremity edema noted. ABDOMEN: Soft, nondistended, appears nontender. Normal bowel sounds throughout. MUSCULOSKELETAL: No clubbing or cyanosis. NEUROLOGIC: The patient is fairly unresponsive. He appears obtunded. His pupils are equal and reactive to light. He does respond to painful stimuli and will moan. ASSESSMENT AND PLAN: Mr. Sarah is a 77-year-old male with advanced dementia with a recent hospitalization for severe dehydration, acute kidney injury, hyponatremia, who presents back to the emergency department with no p.o. intake x1 week, severe dehydration, hypernatremia, and failure to thrive. Severe dehydration with failure to thrive. Again, the patient will be transitioned to comfort care, palliative measures. A new MOLST has been filled out with the family on the chart. The patient is to be a DNR/DNI, comfort care measures only. No feeding tube, no IV fluids. To determine antibiotics when infection occurs and do not send to the hospital. I have entered a hospice consult. The patient will be admitted on observation to the medical unit as it is possible he may not survive the night. If he does, he can be transferred back to the [facility] back on comfort care measures. Please note that the patient's is hospitalized with tentative back surgery in 2 days and she should be kept updated on the patient's clinical status. We will order a morphine sulfate oral concentrate 5 mg sublingual q. 2 hours p.r.n. as well as lorazepam 1 mg sublingual q. 6 hours p.r.n. TIME SPENT: Approximately 75 minutes was spent on this admission, this case was discussed with Dr. Ledesma who agrees with plan of care. SCOTT CINTRON NP [id number]/[facility] #: [id number] [place]
[2017-10-14] MEDS: LORazepam INJ* 2 MG/ML 1 ML VIAL IV PRN (05:23)
--- NOTE | 2017-10-14 10:11 | CONSULT ---
Palliative / Hospice Consult Ordering Provider: Monserrat Brewer - Subjective Code Status: DNR Advance Directives Location: In Chart MOLST Part A Completed: Yes - DNR MOLST Part E Completed:: Yes - DNI, CC only - History or Present Illness History or Present Illness: This 77 year old man has had progressive severe dementia, along with a PMH of DM , HLD, HTN. He was becoming combattive at home, and his 80 y. old injured her back trying to move him there, so he has been a resident at [facility] for the least 6 weeks. He was hospitalized here 09/23-09/27/17 with severe dehydration, hypernatremia, and lactic acidosis due to failure to take p.o. at [facility], but imporved with IV hydration. He was well for a short while but then again refused to take p.o., and was brought to the ER yesterday obtunded, with acute renal failure, hypernatremia, lactic acidosis and hyperglycemia of 411. The family has decided to pursue comfort measures only, and filled out a MOLST form last evening to that effect. The patient's is about to have back surgery tomorrow. Lab Values: Laboratory Last Values WBC 14.2 10^3/ul (3.5-10.8) H 10/13/17 16:40 RBC 4.05 10^6/ul (4.0-5.4) 10/13/17 16:40 Hgb 13.1 g/dl (14.0-18.0) L 10/13/17 16:40 Hct 40 % (42-52) L 10/13/17 16:40 MCV 99 fL (80-94) H 10/13/17 16:40 MCH 33 pg (27-31) H 10/13/17 16:40 MCHC 33 g/dl (31-36) 10/13/17 16:40 RDW 13 % (10.5-15) 10/13/17 16:40 Plt Count 189 10^3/ul (150-450) 10/13/17 16:40 MPV 8.5 um3 (7.4-10.4) 10/13/17 16:40 Neut % (Auto) 85.0 % (38-83) H 10/13/17 16:40 Lymph % (Auto) 7.8 % (25-47) L 10/13/17 16:40 [place] % (Auto) 6.6 % (0-7) 10/13/17 16:40 Eos % (Auto) 0 % (0-6) 10/13/17 16:40 Baso % (Auto) 0.6 % (0-2) 10/13/17 16:40 Absolute Neuts (auto) 12.1 10^3/ul (1.5-7.7) H 10/13/17 16:40 Absolute Lymphs (auto) 1.1 10^3/ul (1.0-4.8) 10/13/17 16:40 Absolute Monos (auto) 0.9 10^3/ul (0-0.8) H 10/13/17 16:40 Absolute Eos (auto) 0 10^3/ul (0-0.6) 10/13/17 16:40 Absolute Basos (auto) 0.1 10^3/ul (0-0.2) 10/13/17 16:40 Absolute Nucleated RBC 0 10^3/ul 10/13/17 16:40 Nucleated RBC % 0 10/13/17 16:40 INR (Anticoag Therapy) 1.09 (0.77-1.02) H 10/13/17 16:40 APTT 27.1 seconds (26.0-36.3) 10/13/17 16:40 D-Dimer, Quantitative > 1050 ng/mL (Less Than 230) H 10/13/17 16:40 VBG pH 7.33 (7.33-7.43) 10/13/17 16:40 VBG pCO2 46 mmHg (41-51) 10/13/17 16:40 VBG pO2 24 mmHg (35-45) L 10/13/17 16:40 VBG HCO3 21.9 mmol/L (24-28) L 10/13/17 16:40 VBG O2 Saturation 42.1 % (70-80) L 10/13/17 16:40 VBG Base Excess -1.9 (0-4) L 10/13/17 16:40 Sodium 146 mmol/L (139-145) H 10/13/17 16:40 Potassium 5.1 mmol/L (3.5-5.0) H 10/13/17 16:40 Chloride 109 mmol/L (101-111) 10/13/17 16:40 Carbon Dioxide 24 mmol/L (22-32) 10/13/17 16:40 Anion Gap 13 mmol/L (2-11) H 10/13/17 16:40 BUN 62 mg/dL (6-24) H 10/13/17 16:40 Creatinine 3.93 mg/dL (0.67-1.17) H 10/13/17 16:40 Est GFR ( Amer) 19.1 (>60) 10/13/17 16:40 Est GFR (Non-Af Amer) 14.9 (>60) 10/13/17 16:40 BUN/Creatinine Ratio 15.8 (8-20) 10/13/17 16:40 Glucose 411 mg/dL (70-100) H 10/13/17 16:40 POC Glucose (mg/dL) 214 mg/dL (70-100) H 10/13/17 19:26 Lactic Acid 4.3 mmol/L (0.5-2.0) H* 10/13/17 16:40 Calcium 9.6 mg/dL (8.6-10.3) 10/13/17 16:40 Magnesium 3.0 mg/dL (1.9-2.7) H 10/13/17 16:40 Total Bilirubin 1.30 mg/dL (0.2-1.0) H 10/13/17 16:40 AST 24 U/L (13-39) 10/13/17 16:40 ALT 52 U/L (7-52) 10/13/17 16:40 Alkaline Phosphatase 163 U/L (34-104) H 10/13/17 16:40 Ammonia 37 mcmol/L (16-53) 10/13/17 16:40 Total Creatine Kinase 46 U/L (10-223) 10/13/17 16:40 CK-MB (CK-2) 3.6 ng/mL (0.6-6.3) 10/13/17 16:40 Troponin I 0.05 ng/mL (<0.04) H* 10/13/17 16:40 C-Reactive Protein 11.16 mg/L (< 5.00) H 10/13/17 16:40 B-Natriuretic Peptide 23 pg/mL (-100) 10/13/17 16:40 Total Protein 7.0 g/dL (6.4-8.9) 10/13/17 16:40 Albumin 3.5 g/dL (3.2-5.2) 10/13/17 16:40 Globulin 3.5 g/dL (2-4) 10/13/17 16:40 Albumin/Globulin Ratio 1.0 (1-3) 10/13/17 16:40 Lipase 38 U/L (11.0-82.0) 10/13/17 16:40 TSH 1.49 mcIU/mL (0.34-5.60) 10/13/17 16:40 Urine Color Yellow 10/13/17 18:15 Urine Appearance Cloudy 10/13/17 18:15 Urine pH 5.0 (5-9) 10/13/17 18:15 Ur Specific [place] 1.020 (1.010-1.030) 10/13/17 18:15 Urine Protein Negative (Negative) 10/13/17 18:15 Urine Ketones Negative (Negative) 10/13/17 18:15 Urine Blood Negative (Negative) 10/13/17 18:15 Urine Nitrate Negative (Negative) 10/13/17 18:15 Urine Bilirubin Negative (Negative) 10/13/17 18:15 Urine Urobilinogen Negative (Negative) 10/13/17 18:15 Ur Leukocyte Esterase 1+ (Negative) A 10/13/17 18:15 Urine WBC (Auto) 1+(6-10/hpf) (Absent) A 10/13/17 18:15 Urine RBC (Auto) Absent (Absent) 10/13/17 18:15 Ur Squamous Epith Cells Present (Absent) A 10/13/17 18:15 Urine Bacteria Absent (Absent) 10/13/17 18:15 Hyaline Casts Present (Absent) A 10/13/17 18:15 Urine Glucose 3+(>=500 mg/dl) (Negative) A 10/13/17 18:15 Urine Ascorbic Acid * (Negative) A 10/13/17 18:15 Acetaminophen < 15 mcg/mL 10/13/17 16:40 - Objective Active Medications: Atropine Sulfate (Atropine 1% (Oral/Sl)*) 2 drop SL Q2H PRN PRN Reason: DISCOMFORT Lorazepam (Ativan Inj*) 1 mg IV Q6H PRN PRN Reason: AGITATION Last Admin: 10/14/17 05:23 Dose: 1 mg Morphine Sulfate (Morphine Oral Concentrate*) 5 mg SL Q2H PRN PRN Reason: PAIN Last Admin: 10/14/17 07:39 Dose: 5 mg Vital Signs: Vital Signs: Temp Pulse Resp BP Pulse Ox 97.4 F 82 22 98/64 98 10/13/17 22:30 10/13/17 22:30 10/14/17 08:00 10/13/17 22:30 10/14/17 00:05 Patient Weight: Weight 165 lb Intake and Output: Intake & Output 10/12/17 10/13/17 10/14/17 10/15/17 06:59 06:59 06:59 06:59 Intake Total 0 Balance 0 Weight 165 lb Intake: Oral 0 Other: Estimated Void Large # Voids 1 Intake and Output Start: 10/13/17 21: 34 Freq: DAILY@0600,1400,2200 Status: Active Protocol: Document 10/14/17 03:51 [id number] (Rec: 10/14/17 03:51 [id number] [id number]) Document 10/14/17 06:22 [id number] (Rec: 10/14/17 06:22 [id number] [id number]) General Impression: Obtunded man lying in bed with easy respirations, well perfused. Head: Symmetrical Ears/Nose/Mouth/Throat: Clear Oropharnyx Neck: Trachea Midline Cardiovascular: NL Sounds; No Murmurs; No JVD, RRR, No Edema Respiratory: Symmetrical Chest Expansion and Respiratory Effort Abdominal: NL Sounds; No Tenderness; No Distention Extremities: No Edema, No Clubbing, Cyanosis Neurological: - - Unresponsive - Assessment Assessment: This patient has severe dementia and has been refusing po, so has developed recurrent hypernatremia and acidosis on the basis of dehydration. I saw him in the company of his stepdaughter and step granddaughter. They understand the futilityy of conitnuing IV hydration, and are in agreement with transfer back to [facility] today for sign on when possible to hospice. He is comfortable, well perfused, breathing easily, and may survive a week or more. He is eligible for hospice services on the basis of his advanced dementia and dehydration. - Plan Consult Plan (MU): Hospice - Time On Unit Date of Evaluation: 10/14/17 Hospice Consult Time in: 09:40 Hospice Consult Time Out: 10:15 Hospice Consult Time Total: 35 > 50% of Time Spend In Counseling or Coordinating Care: Yes
[2017-10-14] MEDS ORDERED: LORazepam INJ* 2 MG/ML 1 ML VIAL IV PRN (10:52)
--- NOTE | 2017-10-14 14:02 | DS ---
DISCHARGE SUMMARY: DATE OF ADMISSION: 10/13/2017. DATE OF DISCHARGE: 10/14/2017. DISCHARGE DIAGNOSES: 1. Dehydration secondary to failure to thrive. 2. Acute renal injury. HISTORY OF PRESENT ILLNESS/HOSPITAL COURSE: The patient is 77-year-old gentleman with history of severe dementia, diabetes mellitus, and hypertension, who has been noted to become combative at home. His 80-year-old has also injured her back trying to move him and has been a resident of [facility] for the last 6 weeks. He has been hospitalized in [facility] on 09/23/17 to 09/27/17 with severe dehydration, hyponatremia, and lactic acidosis, and was sent to [facility] for further rehab. He was well for a short while at [facility], but again refused to take p.o. meds and nutrition and was brought to the ER on 10/13. During his hospitalization stay, he was hydrated with IV fluids and has been stable. The patient's family requested for Palliative Hospice consult and the patient and the patient's family has had appropriate discussion with Hospice Care and wishes Mr. Sarah to be discharged to [facility] on hospice care. Per family's request and given end-stage dementia along with Hospice Care consult, the patient will be discharged to [facility] for hospice care. REVIEW OF SYSTEMS: The patient is unable to provide a reliable 14-point review of systems given his baseline dementia. PHYSICAL EXAM: Reveals following vital signs: Respiratory rate of 16 per minute. General Appearance: The patient was asleep, but arousable, not in acute distress. HEENT: Normocephalic, atraumatic. PERRLA. Neck is soft, supple with no cervical lymphadenopathy. No JVD. Heart: S1, S2 within normal limits. Regular rate and rhythm. No murmurs, rubs, and gallops. Chest is clear to auscultation bilaterally. Good air entry. No wheezes, rales, or rhonchi. Abdomen is soft, nondistended, nontender. Normoactive bowel sounds x4. Extremities: No cyanosis, clubbing, or edema. Psychiatric: Could not be evaluated given baseline dementia. DISCHARGE MEDICATIONS: Discharge orders are: 1. Atropine 1% two drops sublingual. 2. Lorazepam. 3. Morphine. 4. Tylenol. 5. Fluticasone. 6. Haloperidol IV/IM p.r.n. 7. Latanoprost. 8. Trazodone. 9. Venlafaxine. [id number]/[facility] #: [id number] [facility]
== END 2017-10-14 15:20 | disposition hospice, home (50) ==
LOC: ED 15:51 → MED 20:29
PROVIDERS: ADMIT Hospitalist; ATTEND Internal Medicine
DX: E86.0 Dehydration (principal); N17.9 Acute kidney failure, unspecified; Z79.899 Other long term (current) drug therapy; R41.82 Altered mental status, unspecified; G30.9 Alzheimer's disease, unspecified; F02.80 Dementia in other diseases classified elsewhere, unspecified severity, without behavioral disturbance, psychotic disturbance, mood disturbance, and anxiety; I10 Essential (primary) hypertension; E78.5 Hyperlipidemia, unspecified; E11.9 Type 2 diabetes mellitus without complications; R94.31 Abnormal electrocardiogram [ECG] [EKG]
CPT/HCPCS: 36415; 71045; 80053; 80329; 81003; 81015; 82140; 82550; 82553; 82803; 83605; 83690; 83735; 83880; 84443; 84484; 85025; 85379; 85610; 85730; 86140; 87040; 87086; 93005; 94640; 96365; 96375; 96376; 99285; G0378; G0480; J0696; J2060